=== PATIENT | female | born 1965 | race Two or more races ===

== ENCOUNTER 2016-11-19 07:57 | Emergency (ER) | payer OTHER ==
[2016-11-19 08:04] VITALS: TEMP 98.1; BMI 30.7
[2016-11-19] MEDS ORDERED: FAMOTIDINE 20 MG/50 ML IVPB 50 ML IVPB ONE ×2 (08:55→09:01)
[2016-11-19] MEDS ORDERED: SODIUM CHLORIDE 1,000 ML IV ONE (08:55)
--- NOTE | 2016-11-19 09:24 | PDOC ---
History of Present Illness - General History Source: Patient Exam Limitations: No Limitations - History of Present Illness Initial Comments: 11/19/16 09:11 The patient is a 51-year-old woman with a significant past medical history of lupus (newly diagnosed this year; on Methotrexate), recent skin biopsy showed amyloidosis, gastroesophageal reflux disease and neuropathy who presents to the emergency department for abdominal pain. Patient states that she has been experiencing sharp constant per-umbilical non-radiating abdominal pain past week. No trauma, fall strenuous activity. Patient states that she has had two endoscopies performed this year (most recent October 09; which was indicative for ulcers and nodules). She notes that her pain is exacerbated with positional movements such as sitting up. She reports compliance with her Zantac which does not alleviate her pain. She also reports a dull achy pain over her right lower quadrant. She states that she feels there is a mass present around the area. Patient reports concern as this morning she coughed what appeared to be red tinged mucous. No fever, chills, chest pain, shortness of breath, vomiting, diarrhea. No urinary complaints. Allergies: Codeine. Epinephrine. Iodinated Contrast Media Oral and IV. Tramadol. Past Surgical History: Cholecystectomy. Tubal ligation. Social History: Social EtOH use. No recreational drug use. Primary Care Physician: Dr. Msisy Dunbar [phone] <Ashley Gardner - Last Filed: 11/19/16 13:15> <Jaylan Polanco - Last Filed: 11/19/16 13:59> - General Chief Complaint: Pain Stated Complaint: STOMACH PAIN Time Seen by Provider: 11/19/16 08:17 Past History <Ashley Gardner - Last Filed: 11/19/16 13:15> - Past Medical History HTN: Yes Other medical history: lupus,neuropathy - Surgical History Cholecystectomy: Yes - Psycho/Social/Smoking Cessation Hx Anxiety: No Suicidal Ideation: No Smoking History: Never smoked Have you smoked in the past 12 months: No Information on smoking cessation initiated: No Hx Alcohol Use: No Drug/Substance Use Hx: No Substance Use Type: None <Jaylan Polanco - Last Filed: 11/19/16 13:59> - Past Medical History Allergies/Adverse Reactions: Allergies Allergy/AdvReac Type Severity Reaction Status Date / Time codeine Allergy Verified 11/19/16 07:59 epinephrine Allergy Verified 11/19/16 07:59 Iodinated Contrast Media - Allergy Verified 11/19/16 07:59 Oral and tramadol Allergy Verified 11/19/16 07:59 Home Medications: Ambulatory Orders Folic Acid 1 mg PO DAILY 11/19/16 Gabapentin 300 mg PO DAILY 11/19/16 Hydroxychloroquine Sulfate [Plaquenil] 200 mg PO DAILY 11/19/16 Methotrexate Sodium [Methotrexate] 0 mg SQ WEEKLY 11/19/16 Oxycodone HCl/Acetaminophen [Percocet 5-325 mg Tablet] 1 - 2 tab PO TID PRN #20 tab MDD 6 11/19/16 Ranitidine HCl [Zantac] 150 mg PO BID 11/19/16 Triamterene/Hydrochlorothiazid [Triamterene-Hctz 75-50 mg Tab] 1 each PO DAILY 11/19/16 Review of Systems - Review of Systems Constitutional: No: Chills, Fever Respiratory: No: Cough, Shortness of Breath Cardiac (ROS): No: Chest Pain ABD/GI: Yes: Nausea. No: Diarrhea, Vomiting : No: Dysuria, Frequency All Other Systems: Reviewed and Negative <Jaylan Polanco - Last Filed: 11/19/16 13:59> *Physical Exam - Vital Signs Last Vital Signs Temp Pulse Resp BP Pulse Ox 98.1 F 90 18 124/91 100 11/19/16 08:00 11/19/16 08:00 11/19/16 08:00 11/19/16 08:00 11/19/16 08:00 - Physical Exam Comments: 11/19/16 09:11 GENERAL: The patient is awake, alert, and fully oriented, in no acute distress. HEAD: Normal with no signs of trauma. EYES: Pupils equal, round and reactive to light, extraocular movements intact, sclera anicteric, conjunctiva clear with no pallor. ENT: Ears normal, nares patent, oropharynx clear without exudates. Moist mucous membranes. NECK: Normal range of motion, supple without lymphadenopathy, JVD, or masses. LUNGS: Breath sounds equal, clear to auscultation bilaterally. No wheeze/ crackles. HEART: Regular rate and rhythm, normal S1 and S2 without murmur or rub. ABDOMEN: Soft. There is some epigastric discomfort to palpation without guarding or rebound There is also pinpoint discomfort just left of the umbilicus. No visible bruising. There is some referred pain on the right side when palpating the left. Nondistended. BS wnl. No palpable masses. No hepatosplenomegaly. EXTREMITIES: Normal range of motion, no edema. No clubbing or cyanosis. No cords, erythema, or tenderness. NEUROLOGICAL: Cranial nerves II through XII grossly intact. Normal speech, normal gait. PSYCH: Normal mood, normal affect. SKIN: Warm, Dry, normal turgor, no rashes or lesions noted. <Ashley Gardner - Last Filed: 11/19/16 13:15> - Vital Signs Last Vital Signs Temp Pulse Resp BP Pulse Ox 98.1 F 90 18 124/91 100 11/19/16 08:00 11/19/16 08:00 11/19/16 08:00 11/19/16 08:00 11/19/16 08:00 <Jaylan Polanco - Last Filed: 11/19/16 13:59> Heart Score/ECG Review #1 ECG reviewed & interpreted by me at: 09:22 General ECG Interpretation: Sinus Rhythm, Normal Rate (75), Normal Intervals ( qtc 428), No acute ischemic changes <Jaylan Polanco - Last Filed: 11/19/16 13:59> ED Treatment Course - LABORATORY CBC & Chemistry Diagram: 11/19/16 09:40 11/19/16 09:40 - RADIOLOGY Radiograph Interpretation: 11/19/16 12:46 EXAM: CT/ABDOMEN PELVIS CT W/O CONTR Interpreted by Dr. Devang Barnes IMPRESSION: Coronal and sagittal reformatted images were obtained Included lower lung appears unremarkable. The heart is within normal limits in size. Postcholecystectomy surgical metallic clips are present. The stomach is a nondistended limiting evaluation of its wall. The liver, spleen, both adrenal glands and both kidneys appear unremarkable. The pancreas is within normal limits in size. There is mild stranding of the mesentery around the mesenteric artery and vein, in the mid abdomen as well as around the takeoff of the superior mesenteric artery and celiac artery which is nonspecific. Questionable few tiny mesenteric lymph nodes are present. There is no evidence of small bowel obstruction. There are a few tiny mesenteric lymph nodes in the right lower quadrant. The terminal ileum appears unremarkable. Appendix is not visualized. Normal stool burden in the colon without gross wall thickening. Perirectal and pericecal fat is clear. The uterus measures 9 x 6 cm with homogeneous attenuation. Partially distended urinary bladder limiting evaluation of its wall. Mild degenerative disc disease at L5-S1 level. 7 mm sclerotic density in the left ischium which is nonspecific Otherwise, the visualized osseous structures appear unremarkable. - Medications Given in the ED: ED Medications Discontinued Medications Generic Name Dose Route Start Last Admin Trade Name Freq PRN Reason Stop Dose Admin Famotidine/Sodium Chloride 50 mls @ 100 mls/hr 11/19/16 08:55 11/19/16 09:21 Pepcid 20 Mg Premixed Ivpb - IVPB 11/19/16 09:24 100 mls/hr ONCE ONE Administration <Ashley Gardner - Last Filed: 11/19/16 13:15> - LABORATORY CBC & Chemistry Diagram: 11/19/16 09:40 11/19/16 09:40 - RADIOLOGY Radiology Studies Ordered: Category Date Time Status ABDOMEN & PELVIS CT W/O CONTR [CT] Stat CT Scan 11/19/16 08:56 Ordered <Jaylan Polanco - Last Filed: 11/19/16 13:59> Medical Decision Making - Medical Decision Making 11/19/16 13:15 Call placed to patient's PMD, Dr. Missy Dunbar. Immediate response. Case was discussed. <Ashley Gardner - Last Filed: 11/19/16 13:15> - Medical Decision Making 11/19/16 09:11 A portion of this note was documented by scribe services under my direction. I have reviewed the details of the note, within reason, and agree with the documentation with the following case summary and management plan written by me. 51y/o F with history of lupus on methotrexate currently, amyloid, history of gastritis status post endoscopy on Zantac who presents with acute on chronic upper abdominal pain. Reports chronic upper abdominal burning, acutely worsened and with higher severity this morning, associated with some nausea. No vomiting or diarrhea, had normal bowel movement this morning. No fevers or chills. Presents for evaluation. Vitals as normal. Exam as noted with epigastric discomfort to palpation, but no guarding or rebound. 51-year-old female with likely exacerbation of her underlying gastritis, less likely pancreatitis, she is status post cholecystectomy, less likely obstruction or incarcerated hernia. She does have some localizing tenderness, but no peritoneal findings. Labs, urinalysis Antacid Given comorbidities and surgical history, will check CT of the abdomen and pelvis without IV contrast given ALLERGIES Reassess 11/19/16 12:13 Labs are within normal limits, no leukocytosis with white count 5.7 and relatively normal differential. Chemistries are within normal limits including LFTs and lipase. Urinalysis is clear. Patient's pain persists, particularly the left periumbilical discomfort, so given trial of morphine and prophylactic Zofran. Despite codeine ALLERGY, states has had morphine in the past without reaction. CT performed, awaiting rads read. 11/19/16 13:12 CTAP with adenitis, otherwise no organ pathology. Exam unchanged, morphine helped her back pain but not her abd pain. Trial of toradol. Will d/w Dr. griffin, can likely be discharged with continued outpt f/u. 11/19/16 13:53 feels better after toradol, abdomen improved. tolerating PO, friend at bedside. agrees with d/c plan, understands return criteria. <Jaylan Polanco - Last Filed: 11/19/16 13:59> *DC/Admit/Observation/Transfer - Attestations Scribe Attestion: 11/19/16 09:11 Documentation prepared by Ashley Gardner, acting as medical research scientist for Jaylan Polanco MD. <Ashley Gardner - Last Filed: 11/19/16 13:15> <Jaylan Polanco - Last Filed: 11/19/16 13:59> Diagnosis at time of Disposition: Mesenteric adenitis Abdominal pain Qualifiers: Abdominal location: epigastric Qualified Code(s): R10.13 - Epigastric pain - Discharge Dispostion Disposition: HOME Condition at time of disposition: Improved - Prescriptions Prescriptions: Oxycodone HCl/Acetaminophen [Percocet 5-325 mg Tablet] 1 - 2 tab PO TID PRN #20 tab MDD 6 PRN Reason: Pain - Referrals Referrals: Ketty Ribera MD [Primary Care Provider] - - Patient Instructions Printed Discharge Instructions: DI for Mesenteric Adenitis-Adult Additional Instructions: Activity as tolerated. Stay hydrated. Blood tests and a urinalysis showed no acute abnormalities. A CT of the abdomen/ pelvis showed adenitis (inflamed lymph nodes), which could be the cause of your pain. Take percocet as prescribed as needed. Percocet can make you light-headed , so take proper precautions. Continue your medications as previously prescribed by your physician. You should follow up with Dr. Leonard and your strategy consultant as soon as possible regarding today's emergency department visit. Return to the emergency department for any new or concerning symptoms, particularly persistent or worsening pain, bloody vomit or diarrhea, fever/ chills, dehydration.
[2016-11-19 10:07] LABS: BASOPHIL 0.7 % (0-2.0); EOSINOPHIL 1.3 % (0-4.5); MCH 26.6 pg (25.7-33.7); MCHC 33.2 g/dl (32.0-36.0); MEAN PLT VOLUME 9.2 fl (7.5-11.1); NEUTROPHILS 47.3 % (42.8-82.8); PLATELET COUNT 239 K/MM3 (134-434); RDW 16.9 % (11.6-15.6); WHITE BLOOD COUNT 5.7 K/mm3 (4.0-10.0)
[2016-11-19 10:24] LABS: ALBUMIN 3.5 g/dl (3.4-5.0); ALK PHOS 77 U/L (45-117); ANION GAP 10 (8-16); BILIRUBIN,TOTAL 0.3 mg/dL (0.2-1.0); CALCIUM 9.2 mg/dL (8.5-10.1); CO2 28 mmol/L (21-32); CREATININE 0.8 mg/dL (0.55-1.02); GLUCOSE,RANDOM 104 mg/dL (74-106); SGPT/ALT 25 U/L (12-78); TOT PROT 7.2 g/dl (6.4-8.2)
[2016-11-19 10:25] LABS: SGOT/AST 32 U/L (15-37)
[2016-11-19 11:16] LABS: URINE APPEARANCE CLEAR; URINE BILIRUBIN NEGATIVE (NEGATIVE); URINE BLOOD NEGATIVE (NEGATIVE); URINE COLOR STRAW; URINE GLUCOSE (UA) NEGATIVE (NEGATIVE); URINE KETONE NEGATIVE (NEGATIVE); URINE LEUK ESTERASE NEGATIVE (NEGATIVE); URINE NITRITE NEGATIVE (NEGATIVE); URINE PROTEIN NEGATIVE (NEGATIVE); URINE UROBILINOGEN NEGATIVE E.U./dl (0.2-1.0)
[2016-11-19] MEDS ORDERED: ONDANSETRON 4 MG/2 ML VIAL IVPUSH ONE (12:12)
[2016-11-19] MEDS ORDERED: morphine CARPU-JECT 4 MG/1 ML DISP.SYRIN IVPUSH ONE (12:12)
[2016-11-19] MEDS ORDERED: morphine CARPU-JECT 4 MG/1 ML DISP.SYRIN ONE (12:14)
[2016-11-19] MEDS ORDERED: ONDANSETRON 4 MG/2 ML VIAL ONE (12:15)
[2016-11-19] MEDS ORDERED: KETOROLAC TROMETHAMINE 30 MG/1 ML VIAL IVPUSH ONE (13:06)
[2016-11-19] MEDS ORDERED: KETOROLAC TROMETHAMINE 30 MG/1 ML VIAL ONE (13:09)
--- NOTE | 2016-11-19 13:14 | EKG ---
Test Reason : Blood Pressure : / mmHG Vent. Rate : 075 BPM Atrial Rate : 075 BPM P-R Int : 160 ms QRS Dur : 076 ms QT Int : 384 ms P-R-T Axes : 030 022 010 degrees QTc Int : 428 ms NORMAL SINUS RHYTHM NO PREVIOUS ECGS AVAILABLE CLINICAL CORELATION RECOMMENDED Confirmed by TEMI WEIR MD ([id number]) on 11/19/2016 1:14:15 PM Referred By: Confirmed By:TEMI WEIR MD
[2016-11-19 14:52] VITALS: BP 113/69; PULSE 72
== END 2016-11-19 14:52 | disposition home or self-care (01) ==
LOC: JER 07:57
PROC: 3E033GC Introduction of Other Therapeutic Substance into Peripheral Vein, Percutaneous Approach (ICD-10-PCS; principal; 2016-11-19)
PROC: 3E033NZ Introduction of Analgesics, Hypnotics, Sedatives into Peripheral Vein, Percutaneous Approach (ICD-10-PCS; 2016-11-19)
PROC: 3E033GC Introduction of Other Therapeutic Substance into Peripheral Vein, Percutaneous Approach (ICD-10-PCS; 2016-11-19)
PROC: 3E0333Z Introduction of Anti-inflammatory into Peripheral Vein, Percutaneous Approach (ICD-10-PCS; 2016-11-19)
DX: I88.0 Nonspecific mesenteric lymphadenitis (principal); E85.9 Amyloidosis, unspecified; M32.9 Systemic lupus erythematosus, unspecified; I10 Essential (primary) hypertension; G62.9 Polyneuropathy, unspecified
CPT/HCPCS: 36415; 74176-TC; 80053; 81003; 83690; 85025; 93005; 93010; 96365; 96375; 99282-25; Q9967

== ENCOUNTER 2017-06-08 17:00 | Inpatient (IN) | payer OTHER ==
[2017-06-08 17:18] VITALS: BMI 29.9
--- NOTE | 2017-06-08 18:42 | PDOC ---
History of Present Illness - General Chief Complaint: Respiratory Stated Complaint: FLU History Source: Patient Exam Limitations: No Limitations - History of Present Illness Initial Comments: 06/08/17 18:35 HPI: This 52 yr old female with c/o chest congestion, cough, fever chills and recent completion of tamiflu for flu + now here for follow up Chief Compliant:cough, congetion PMH: lupus, recent infusions of retuxamar FH: Pt has not recently traveled outside the country in the last 30 days. Pt has not been in contact with people who have traveled out of the country, in contact with people who have been ill with fever, n, v, d. SH: smoking use: NONE illicit drug use: NONE alcohol use: NONE PSH: none Home med use noted on JUL Allergies:noted on JUL Immunizations:did not receive the flu shot PCP: not on staff Past History - Past Medical History Allergies/Adverse Reactions: Allergies Allergy/AdvReac Type Severity Reaction Status Date / Time codeine Allergy Verified 06/08/17 17:19 epinephrine Allergy Verified 06/08/17 17:19 Iodinated Contrast- Oral and Allergy Verified 06/08/17 17:19 IV Dye [Iodinated Contrast Media - Oral and] tramadol Allergy Verified 06/08/17 17:19 Home Medications: Ambulatory Orders Gabapentin 300 mg PO DAILY 11/19/16 Hydroxychloroquine Sulfate [Plaquenil] 200 mg PO DAILY 11/19/16 Triamterene/Hydrochlorothiazid [Triamterene-Hctz 75-50 mg Tab] 1 each PO DAILY 11/19/16 COPD: No HTN: Yes Other medical history: lupus - Surgical History Cholecystectomy: Yes - Suicide/Smoking/Psychosocial Hx Smoking History: Never smoked Have you smoked in the past 12 months: No Hx Alcohol Use: No Drug/Substance Use Hx: No Substance Use Type: None Review of Systems - Review of Systems Able to Perform ROS?: Yes Comments:: 06/08/17 18:42 General statement: Gen. illness and feeling with cough and cold Hematology: neg history of bleeding/blood thinners Skin: Neg for lesions, rash, bruising. HEENT: Neg symptoms Respiratory: Positive shortness of breath, cough and congestion Cardiac: Neg chest pain GI: Neg pain, n/v : Neg problems on voiding MS: Neg for joint pain/stiffness, no edema Neuro: Neg for LOC, weakness, Endocrine: Neg for excess thirst/hunger, cold/heat intolerance, excess sweating Allergies: Neg for allergies Is the patient limited Pashto proficient: No *Physical Exam - Vital Signs Last Vital Signs Temp Pulse Resp BP Pulse Ox 98.2 F 101 H 20 129/52 98 06/08/17 17:15 06/08/17 17:15 06/08/17 17:15 06/08/17 17:15 06/08/17 17:15 - Physical Exam Comments: 06/08/17 18:43 General Appearance: This ill appearing 52-year-old female V/S: hemodynamically stable, afebrile Skin: WNL of pt's skin color, no signs of pallor, mottling, cyanosis Head:symmetrical Eyes: EOM's intact, PERRLA Ears: denies pain Nose: patent with congestion Throat: lips, teeth, gums, tongue, buccal mucos pink and moist Lungs: Chest symmetry equal. Cap refill <3 seconds. Lung sounds rhonchi, wheezing Cardiac: PMI at R 4MCL space, pos S1 and S2, regular rate. Abdomen: Soft, round, nontender : Not observed Muscularskeletal: Gait steady, ambulated in to ER, no edema +PMS Neuro: AAOx3, cognitively intact, speech clear and appropriate. ED Treatment Course - LABORATORY CBC & Chemistry Diagram: 06/08/17 19:30 06/08/17 19:30 - RADIOLOGY Radiology Studies Ordered: Category Date Time Status CHEST PA & LAT [RAD] Stat Radiology 06/08/17 18:35 Ordered Medical Decision Making - Medical Decision Making 06/08/17 18:43 Patient initially seen and examined here in fast track. She is with congestion, cough, wheezing and feels crackling in her chest over the last couple of nights. She was initially treated with Tamiflu last week and now is completed it. She is nervous because she has lupus and has not been to the counter roller due to a switching insurance. She is concerned because she already completed the Tamiflu and is not recovering and now having crackles concerning for pneumonia. Chest x-ray ordered 06/08/17 18:57 CXR prelim neg for infiltrate but pt with + cough, wheeze, rhonchi, A/P suspicious pneumonia -cultures obtain -labs -ua/cs -solumedrol -azithromycin x 1 -duoneb Observe. 06/08/17 19:49 Pt transferred to Main ER for observation *DC/Admit/Observation/Transfer Diagnosis at time of Disposition: Influenza - Discharge Dispostion Condition at time of disposition: Guarded - Referrals Referrals: Missy Dunbar MD [Primary Care Provider] - - Patient Instructions - Post Discharge Activity
[2017-06-08] MEDS ORDERED: AZITHROMYCIN 500 MG VIAL IVPB ONE (18:55)
[2017-06-08] MEDS ORDERED: methylPREDNISolone NA SUCC 125 MG/2 ML VIAL IVPB ONE (18:55)
[2017-06-08] MEDS ORDERED: SODIUM CHLORIDE 1,000 ML IV STA (18:55)
[2017-06-08] MEDS ORDERED: AZITHROMYCIN IVPB 500 MG in DEXTROSE 5%-WATER - 250 ML IVPB ONE (19:15)
[2017-06-08] MEDS ORDERED: AZITHROMYCIN IVPB 250 ML IVPB ONE (19:34)
[2017-06-08] MEDS ORDERED: methylPREDNISolone NA SUCC 125 MG/2 ML VIAL ONE ×2 (19:35→20:14)
[2017-06-08 19:37] LABS: HEMOGLOBIN 13.8 GM/dL (10.7-15.3); WHITE BLOOD COUNT 6.3 K/mm3 (4.0-10.0)
[2017-06-08 19:42] LABS: URINE APPEARANCE CLEAR; URINE BILIRUBIN NEGATIVE (NEGATIVE); URINE BLOOD NEGATIVE (NEGATIVE); URINE COLOR YELLOW; URINE GLUCOSE (UA) NEGATIVE (NEGATIVE); URINE KETONE NEGATIVE (NEGATIVE)
[2017-06-08 19:43] LABS: URINE LEUK ESTERASE NEGATIVE (NEGATIVE); URINE NITRITE NEGATIVE (NEGATIVE); URINE PROTEIN NEGATIVE (NEGATIVE)
[2017-06-08 19:46] LABS: EOS % 2.2 % (0-4.5); HEMATOCRIT 42.3 % (32.4-45.2); LYMPH % 42.1 % (8-40); MCH 25.2 pg (25.7-33.7); MCHC 32.6 g/dl (32.0-36.0); MEAN CELL VOLUME 77.2 fl (80-96); MEAN PLT VOLUME 9.5 fl (7.5-11.1); NEUT % 43.7 % (42.8-82.8); PLATELET COUNT 258 K/MM3 (134-434); RBC 5.47 M/mm3 (3.60-5.2); RDW 16.9 % (11.6-15.6)
--- NOTE | 2017-06-08 19:51 | PDOC ---
*Physical Exam - Vital Signs Last Vital Signs Temp Pulse Resp BP Pulse Ox 98.2 F 101 H 20 129/52 98 06/08/17 17:15 06/08/17 17:15 06/08/17 17:15 06/08/17 17:15 06/08/17 17:15 - Physical Exam General Appearance: Yes: Appropriately Dressed Respiratory/Chest: positive: Rhonchi, Wheezing (throughout) Cardiovascular: positive: Tachycardia Gastrointestinal/Abdominal: positive: Normal Bowel Sounds, Soft Extremity: positive: Normal Capillary Refill, Normal Inspection, Normal Range of Motion Integumentary: positive: Normal Color, Dry, Warm Neurologic: positive: Fully Oriented, Alert, Normal Mood/Affect ED Treatment Course - LABORATORY CBC & Chemistry Diagram: 06/08/17 19:30 06/08/17 19:30 - ADDITIONAL ORDERS Additional order review: Laboratory Results 06/08/17 19:20 Urine Color Yellow Urine Appearance Clear Urine pH 5.0 Ur Specific [place] 1.020 Urine Protein Negative Urine Glucose (UA) Negative Urine Ketones Negative Urine Blood Negative Urine Nitrite Negative Urine Bilirubin Negative Urine Urobilinogen 2.0 H Ur Leukocyte Esterase Negative 06/08/17 19:30 RBC 5.47 H MCV 77.2 L MCHC 32.6 RDW 16.9 H MPV 9.5 Neutrophils % 43.7 Lymphocytes % 42.1 H Monocytes % 11.0 H Eosinophils % 2.2 Basophils % 1.0 Progress Note - Progress Note Progress Note: A: bronchitis P: Medical Decision Making - Medical Decision Making 06/08/17 21:23 patient s/p Duoneb x2. wheezing throughout. patient s/p solumedrol IV, azithromycin NS bolus. will give additional duoneb x 2 06/08/17 21:25 Patient reports no improvement in respiratory status. wheezing noted throughou . will magnesium sulfate and reevalaute. 06/08/17 22:49 06/09/17 00:[address] Munoz covering Dr. Hoover. Patient to be admitted for further management of care. 06/09/17 00:39 *DC/Admit/Observation/Transfer Diagnosis at time of Disposition: Influenza Reactive airway disease with acute exacerbation Qualifiers: Asthma severity: mild Asthma persistence: persistent Qualified Code(s): J45.31 - Mild persistent asthma with (acute) exacerbation - Discharge Dispostion Condition at time of disposition: Guarded Admit: Yes - Referrals Referrals: Missy Dunbar MD [Primary Care Provider] - - Patient Instructions - Post Discharge Activity
[2017-06-08 20:00] LABS: ALBUMIN 3.7 g/dl (3.4-5.0); ALK PHOS 93 U/L (45-117); ANION GAP 8 (8-16); BILIRUBIN,TOTAL 0.3 mg/dL (0.2-1.0); BLOOD UREA NITROGEN 17 mg/dL (7-18); CALCIUM 8.4 mg/dL (8.5-10.1); CHLORIDE 103 mmol/L (98-107); CO2 28 mmol/L (21-32); CREATININE 0.8 mg/dL (0.55-1.02); GLUCOSE,RANDOM 119 mg/dL (74-106); POTASSIUM 3.2 mmol/L (3.5-5.1); SGOT/AST 42 U/L (15-37); SGPT/ALT 59 U/L (12-78); SODIUM 139 mmol/L (136-145); TOT PROT 7.8 g/dl (6.4-8.2)
[2017-06-08] MEDS ORDERED: ALBUTEROL SO4 2.5/IPRATROPIUM 0.5 INH SOL 3 ML VIAL.NEB. NEB ONE ×2 (20:14→22:00)
[2017-06-08] MEDS: ALBUTEROL SO4 2.5/IPRATROPIUM 0.5 INH SOL 3 ML VIAL.NEB. NEB SCH ×4 (20:25→22:59)
[2017-06-08] MEDS ORDERED: IBUPROFEN 600 MG TABLET (FP) PO ONE ×2 (20:27→20:28)
[2017-06-08] MEDS ORDERED: MAGNESIUM SULF 50% (8.12 MEQ/2 ML-1 GM VIAL) IVPB ONE (22:37)
[2017-06-08] MEDS ORDERED: SODIUM CHLORIDE 1,000 ML IV SCH (22:45)
[2017-06-08] MEDS ORDERED: MAGNESIUM SULF 50% (8.12 MEQ/2 ML-1 GM VIAL) ONE (23:11)
[2017-06-09] MEDS ORDERED: ACETAMINOPHEN 325 MG TABLET (FP) PO PRN (00:16)
[2017-06-09] MEDS ORDERED: ALBUTEROL SO4 0.083% IH SOL 2.5 MG/3 ML VIAL.NEB. NEB PRN (00:16)
[2017-06-09] MEDS ORDERED: methylPREDNISolone NA SUCC 125 MG/2 ML VIAL IVPB SCH ×2 (00:30→10:00)
[2017-06-09] MEDS ORDERED: GABAPENTIN 300 MG CAPSULE (FP) PO ONE ×3 (00:43→01:00)
[2017-06-09] MEDS ORDERED: methylPREDNISolone NA SUCC 40 MG/1 ML VIAL ONE (00:56)
[2017-06-09] MEDS ORDERED: PATIENT'S OWN MEDICATION (NON-FORMULARY) (Triamterene/Hydrochlorothiazid [Triamterene-Hctz PO ONE (01:00)
[2017-06-09] MEDS ORDERED: TRIAMTERENE AND HCTZ - 37.5 MG/25 MG CAPSULE PO ONE (01:00)
[2017-06-09] MEDS ORDERED: HYDROXYCHLOROQUINE SO4 200 MG TABLET (FP) PO ONE (01:00)
[2017-06-09] MEDS ORDERED: HYDROXYCHLOROQUINE SO4 200 MG TABLET (FP) PO SCH ×2 (01:15→10:00)
[2017-06-09 08:45] VITALS: BP 145/90; PULSE 78; TEMP 98
--- NOTE | 2017-06-09 08:53 | DS ---
Physical Examination Vital Signs: Vital Signs Temperature 98 F 06/09/17 07:25 Pulse Rate 78 06/09/17 07:25 Respiratory Rate 16 06/09/17 07:25 Blood Pressure 145/90 06/09/17 07:25 O2 Sat by Pulse Oximetry (%) 98 06/09/17 07:25 Constitutional: Yes: Calm Eyes: Yes: EOM Intact HENT: Yes: Normocephalic Neck: Yes: Trachea Midline Cardiovascular: Yes: Regular Rate and Rhythm Respiratory: Yes: Wheezes (scattered bilateral) Gastrointestinal: Yes: Normal Bowel Sounds, Soft Musculoskeletal: Yes: WNL Extremities: Yes: WNL Edema: No Peripheral Pulses WNL: Yes Integumentary: Yes: WNL Neurological: Yes: WNL Psychiatric: Yes: WNL Labs: CBC, BMP 06/08/17 19:30 06/08/17 19:30 Discharge Summary Reason For Visit: INFLUENZA REACTIVE AIRWAY DISEASE W/EXAC Current Active Problems Influenza (Acute) Reactive airway disease with acute exacerbation (Acute) Hospital Course: was in office with flu like symptoms 1 week prior, finished tamiflu. 3 days ago developed more wheezing and coughing with associated diarrhea. On plaquenil for lupus. no chills, no fever at this point, no abdominal pain. cough is mostly dry without sputum production. received iv steroids and iv abx in er, feels much better now, anxious to go home. medically stable to go home with close out pt f/up. Condition: Guarded - Instructions Referrals: Missy Dunbar MD [Primary Care Provider] - Disposition: HOME - Home Medications Comprehensive Discharge Medication List: Ambulatory Orders Gabapentin 300 mg PO DAILY 11/19/16 Hydroxychloroquine Sulfate [Plaquenil] 200 mg PO DAILY 11/19/16 Triamterene/Hydrochlorothiazid [Triamterene-Hctz 75-50 mg Tab] 1 each PO DAILY 11/19/16 Albuterol 0.083% Nebulizer Yvonne [Ventolin 0.083% Nebulizer Soln -] 1 amp NEB Q6H PRN #30 amp 06/09/17 Azithromycin [Zithromax -] 250 mg PO UTDICT #6 tab 06/09/17 Prednisone [Deltasone -] 10 mg PO DAILY #30 tablet 06/09/17
[2017-06-09] MEDS ORDERED: LEVOFLOXACIN 500 MG IVPB 500 MG/100 ML BAG IVPB SCH (10:00)
[2017-06-09] MEDS ORDERED: PATIENT'S OWN MEDICATION (NON-FORMULARY) (Triamterene/Hydrochlorothiazid [Triamterene-Hctz PO SCH (10:00)
[2017-06-09] MEDS ORDERED: GABAPENTIN 300 MG CAPSULE (FP) PO SCH (10:00)
[2017-06-09] MEDS ORDERED: ENOXAPARIN NA (PORCINE) 40 MG/0.4 ML DISP.SYRIN SQ SCH (10:00)
== END 2017-06-09 08:49 | disposition home or self-care (01) | DRG 113 ==
LOC: JERFT 17:00 → JERBED 06-09 00:29 → UNDOADMIN 06-09 01:20 → JERBED 06-09 01:20
PROVIDERS: ADMIT Internal Medicine; ATTEND Internal Medicine
DX: J11.1 Influenza due to unidentified influenza virus with other respiratory manifestations (principal); J45.31 Mild persistent asthma with (acute) exacerbation; J40 Bronchitis, not specified as acute or chronic
CPT/HCPCS: 36415; 71046-TC; 80053; 81003; 85025; 87040; 87086; 99283-25

== ENCOUNTER 2017-12-19 14:20 | Observation (INO) | payer OTHER ==
--- NOTE | 2017-12-19 14:51 | PDOC ---
History of Present Illness - History of Present Illness Initial Comments: 12/19/17 16:05 The patient is a 52 year old female, with a significant PMH of lupus (diagnosed 1 year ago, last flare up in October 2017), HTN, GERD, who presents to the emergency department with 5 days of diffuse abdominal pain and 1 day of progressively worsening nausea with emesis (non bloody, non bilious). The patient states the diffuse abdominal pain is a sharp constant pain, radiates from the RUQ to LUQ/LLQ, rated 8/10 in intensity, exacerbated with oral intake , no alleviating factors. The patient states she was seen 2 days ago at [facility] for the same complaint of diffuse abdominal pain, prescribed Medrol for her lupus and discharged. The patient states she had a CT at that time but is unsure of the results. The patient reports that beginning last night around 1 am she had persistent emesis (non bloody, non bilious) from 1 am to 4 am which brought her to the ED today. The patient states her diffuse abdominal pain has been the same and not worsening. The patient states in the past few months she has experienced bruising on her LLE, a pruritic rash on her back, constipation (last bowel movement yesterday) and hair loss. The patient also endorses shortness of breath with exertion. The patient states she follows with Dr Gaspar for her lupus management. The patient denies chest pain, headache and dizziness. Denies fever, chills, diarrhea. Denies dysuria, frequency, urgency and hematuria. Allergies: Codeine. Epinephrine. Iodinated Contrast Media Oral and IV. Tramadol. Past surgical history: Cholecystectomy. Tubal ligation. Tonsillectomy. TMJ surgery. Social history: Social EtOH use. No recreational drug use. Rheumatology: Dr Gaspar [phone] PCP: Dr. Xavier <Franky Lua - Last Filed: 12/19/17 17:55> - General History Source: Patient Exam Limitations: No Limitations <Mary Nguyen - Last Filed: 12/19/17 18:26> - General Chief Complaint: Nausea/Vomiting Stated Complaint: ABDOMINAL PAIN WITH N/V Time Seen by Provider: 12/19/17 14:43 Past History <Franky Lua - Last Filed: 12/19/17 17:55> - Past Medical History COPD: No HTN: Yes - Surgical History Cholecystectomy: Yes - Suicide/Smoking/Psychosocial Hx Smoking History: Never smoked Have you smoked in the past 12 months: No Hx Alcohol Use: No Drug/Substance Use Hx: No Substance Use Type: None <Mary Nguyen - Last Filed: 12/19/17 18:26> - Past Medical History Allergies/Adverse Reactions: Allergies Allergy/AdvReac Type Severity Reaction Status Date / Time codeine Allergy Verified 12/19/17 14:44 epinephrine Allergy Verified 12/19/17 14:44 Iodinated Contrast- Oral and Allergy Verified 12/19/17 14:44 IV Dye [Iodinated Contrast Media - Oral and] tramadol Allergy Verified 12/19/17 14:44 Home Medications: Ambulatory Orders Hydroxychloroquine Sulfate [Plaquenil] 400 mg PO HS 11/19/16 Triamterene/Hydrochlorothiazid [Triamterene-Hctz 75-50 mg Tab] 1 each PO HS 03/28 Review of Systems - Review of Systems Comments:: 12/19/17 16:06 GENERAL/CONSTITUTIONAL: +Hair loss. No fever or chills. No weakness. HEAD, EYES, EARS, NOSE AND THROAT: No change in vision. No ear pain or discharge. No sore throat. CARDIOVASCULAR: +Shortness of breath. No chest pain. RESPIRATORY: No cough, wheezing, or hemoptysis. GASTROINTESTINAL: +Diffuse abdominal pain. +Nausea. +Vomiting. +Constipation. No diarrhea. GENITOURINARY: No dysuria, frequency, or change in urination. MUSCULOSKELETAL: No joint or muscle swelling or pain. No neck or back pain. SKIN: +Pruritic rash on back (resolved). NEUROLOGIC: No headache, vertigo, loss of consciousness, or change in strength/ sensation. ENDOCRINE: No increased thirst. No abnormal weight change. HEMATOLOGIC/LYMPHATIC: +Bruising on LLE. No anemia, easy bleeding, or history of blood clots. ALLERGIC/IMMUNOLOGIC: No hives or skin allergy. <Franky Lau - Last Filed: 12/19/17 17:55> *Physical Exam - Vital Signs Last Vital Signs Temp Pulse Resp BP Pulse Ox 98.8 F 90 16 150/86 100 12/19/17 14:43 12/19/17 14:43 12/19/17 14:43 12/19/17 14:43 12/19/17 14:43 - Physical Exam Comments: 12/19/17 16:42 GENERAL: The patient is in no acute distress. HEAD: Normal with no signs of trauma. EYES: PERRLA, EOMI, sclera anicteric, conjunctiva clear. ENT: Ears normal, nares patent, oropharynx clear without exudates. Moist mucous membranes. NECK: Normal range of motion, supple without lymphadenopathy, JVD, or masses. LUNGS: Breath sounds equal, clear to auscultation bilaterally. No wheezes, and no crackles. HEART:Regular rate and rhythm, normal S1 and S2 without murmur, rub or gallop. ABDOMEN: +Epigastric and LUQ tender to palpation. Soft, normoactive bowel sounds. No guarding, no rebound. No masses palpable. EXTREMITIES: Normal range of motion, no edema. No clubbing or cyanosis. No erythema, or tenderness. NEUROLOGICAL: Cranial nerves II through XII grossly intact. Normal speech. No focal neurological deficits. MUSCULOSKELETAL: Back non-tender to palpation, no CVA tenderness SKIN: Warm, Dry, normal turgor, no rashes or lesions noted. <Franky Lua - Last Filed: 12/19/17 17:55> ED Treatment Course - LABORATORY CBC & Chemistry Diagram: 12/19/17 15:30 12/19/17 15:30 - ADDITIONAL ORDERS Additional order review: Laboratory Results 12/19/17 12/19/17 15:30 15:01 Sodium 136 Potassium 3.2 L Chloride 103 Carbon Dioxide 27 Anion Gap 6 L BUN 12 Creatinine 0.7 Creat Clearance w eGFR > 60 Random Glucose 111 H Calcium 8.6 Total Bilirubin 0.5 AST 22 ALT 15 Alkaline Phosphatase 51 Total Protein 6.4 Albumin 3.6 Total Amylase 78 Urine Color Yellow Urine Appearance Clear Urine pH 6.0 Ur Specific [place] 1.015 Urine Protein Negative Urine Glucose (UA) Negative Urine Ketones Negative Urine Blood Negative Urine Nitrite Negative Urine Bilirubin Negative Urine Urobilinogen 0.2 Ur Leukocyte Esterase Negative 12/19/17 15:30 RBC 4.61 MCV 77.8 L MCHC 32.1 RDW 17.4 H MPV 10.3 Neutrophils % 54.6 Lymphocytes % 30.9 Monocytes % 11.0 H Eosinophils % 0.8 Basophils % 2.7 H - RADIOLOGY Radiograph Interpretation: 12/19/17 17:55 EXAM#: TYPE/EXAM: RESULT: [id number] CT/ABDOMEN PELVIS CT W/O CONTR HISTORY PROVIDED: Abdominal pain TECHNIQUE: Sequential axial images were obtained from the domes of the diaphragm through the symphysis pubis viewed The study is limited without the use of any contrast material. The lung bases are clear. The liver, spleen, pancreas, adrenal glands and kidneys demonstrate no significant abnormalities. The gallbladder is been removed. There is no evidence of intra-abdominal or retroperitoneal lymphadenopathy or fluid collections. There is mild mesenteric haziness within the left mid abdomen. This finding had been noted on a prior study dated 11/19/2016 with no significant change. A few small is mesenteric lymph nodes are also identified. There is no evidence of pneumoperitoneum, bowel obstruction or intra-abdominal abscess. There is no CT evidence of acute appendicitis or diverticulitis. Examination of the pelvis demonstrates no evidence of pelvic masses, fluid collections or lymphadenopathy. The uterus is somewhat enlarged and leiomyomata are suspected. A 2.4 cm right ovarian cyst is also noted. There is no evidence of acute bony pathology. IMPRESSION: No evidence of acute pathology within the abdomen or pelvis. Please see above discussion. Reported By: Urban Maddox MD <Franky Lua - Last Filed: 12/19/17 17:55> - LABORATORY CBC & Chemistry Diagram: 12/19/17 15:30 12/19/17 15:30 <Mary Nguyen - Last Filed: 12/19/17 18:26> Medical Decision Making - Medical Decision Making 12/19/17 16:[address] Gaspar at 3:47. Pending return phone call. Second call placed to Dr. Gaspar at 4:36. Call returned at 5:[address] Gaspar. Case discussed. 12/19/17 17:[address] Xavier at 5:05 pm[address] Call service advised Dr. Stoner to return the call. Call returned by Dr Stoner at 5:45 pm. Case discussed. <Franky Lua - Last Filed: 12/19/17 17:55> - Medical Decision Making 12/19/17 17:15 Laboratory Tests 12/19/17 12/19/17 15:30 15:30 WBC 7.1 Hgb 11.5 Hct 35.9 Plt Count 272 Absolute Neuts (auto) 3.8 Neutrophils % 54.6 Lymphocytes % 30.9 Monocytes % 11.0 H Basophils % 2.7 H Sodium 136 Potassium 3.2 L Chloride 103 Carbon Dioxide 27 BUN 12 Creatinine 0.7 Random Glucose 111 H AST 22 ALT 15 Total Amylase 78 12/19/17 17:[address] Gina Joya states that patient had likely Agrees with admission 12/19/17 17:17 ? Serositis ? vasculitis 12/19/17 17:[address] Benito Manrique states he does not come to [facility] Recommends admission to Service attending <Mary Nguyen - Last Filed: 12/19/17 18:26> *DC/Admit/Observation/Transfer - Attestations Scribe Attestion: 12/19/17 16:07 Documentation prepared by Franky Lua, acting as biomedical engineering director for Mary Nguyen MD. <Franky Lua - Last Filed: 12/19/17 17:55> - Discharge Dispostion Decision to Admit order: Yes <Mary Nguyen - Last Filed: 12/19/17 18:26> Diagnosis at time of Disposition: Intractable vomiting Qualifiers: Vomiting type: unspecified Nausea presence: with nausea Qualified Code(s): R11.2 - Nausea with vomiting, unspecified - Discharge Dispostion Condition at time of disposition: Stable - Referrals Referrals: Missy Dunbar MD [Primary Care Provider] - - Patient Instructions - Post Discharge Activity
[2017-12-19 15:06] LABS: URINE APPEARANCE Clear; URINE BILIRUBIN Negative (NEGATIVE); URINE COLOR Yellow; URINE GLUCOSE (UA) Negative (NEGATIVE); URINE KETONE Negative (NEGATIVE); URINE LEUK ESTERASE Negative (NEGATIVE); URINE NITRITE Negative (NEGATIVE); URINE PROTEIN Negative (NEGATIVE); URINE UROBILINOGEN 0.2 (0.2-1.0)
[2017-12-19] MEDS ORDERED: SODIUM CHLORIDE 1,000 ML IV STA (15:14)
[2017-12-19] MEDS ORDERED: FAMOTIDINE 20 MG/50 ML IVPB 20 MG/50 ML MG IVPB ONE ×2 (15:19→16:12)
[2017-12-19] MEDS ORDERED: ONDANSETRON 4 MG/2 ML VIAL IVPB ONE (15:19)
[2017-12-19] MEDS ORDERED: ACETAMINOPHEN 1000 MG/100 ML VIAL (NON FORMULARY) IVPB ONE (15:21)
[2017-12-19 15:45] LABS: BASO % 2.7 % (0-2.0); EOS % 0.8 % (0-4.5); HEMATOCRIT 35.9 % (32.4-45.2); HEMOGLOBIN 11.5 GM/dl (10.7-15.3); LYMPH % 30.9 % (8-40); MCH 24.9 pg (25.7-33.7); MCHC 32.1 g/dl (32.0-36.0); MEAN CELL VOLUME 77.8 fl (80-96); MEAN PLT VOLUME 10.3 fl (7.5-11.1); NEUT % 54.6 % (42.8-82.8); PLATELET COUNT 272 K/MM3 (134-434); RBC 4.61 M/mm3 (3.60-5.2); RDW 17.4 % (11.6-15.6); WHITE BLOOD COUNT 7.1 K/mm3 (4.0-10.8)
[2017-12-19 15:53] LABS: ALBUMIN 3.6 g/dl (3.5-5.0); ALK PHOS 51 U/L (32-92); AMYLASE 78 U/L (25-125); ANION GAP 6 (8-16); BILIRUBIN,TOTAL 0.5 mg/dl (0.2-1.0); BLOOD UREA NITROGEN 12 mg/dl (7-18); CALCIUM 8.6 mg/dl (8.4-10.2); CHLORIDE 103 mmol/L (98-107); CO2 27 mmol/L (22-28); CREATININE 0.7 mg/dl (0.6-1.3); GLUCOSE,RANDOM 111 mg/dl (74-106); POTASSIUM 3.2 mmol/L (3.5-5.1); SGOT/AST 22 U/L (10-42); SGPT/ALT 15 U/L (10-40); SODIUM 136 mmol/L (136-145); TOT PROT 6.4 g/dl (6.4-8.3)
[2017-12-19] MEDS ORDERED: ACETAMINOPHEN INJECTION 100 ML IVPB ONE (16:11)
[2017-12-19] MEDS ORDERED: morphine CARPU-JECT 4 MG/1 ML DISP.SYRIN IVPUSH ONE (17:05)
[2017-12-19] MEDS ORDERED: methylPREDNISolone NA SUCC 125 MG/2 ML VIAL IVPB ONE (17:05)
[2017-12-19 17:14] LABS: LIPASE 284 U/L (73-393)
[2017-12-19] MEDS ORDERED: methylPREDNISolone NA SUCC 125 MG/2 ML VIAL ONE (17:29)
[2017-12-19] MEDS ORDERED: morphine SULFATE 4 MG/ML VIAL ONE (17:30)
[2017-12-19] MEDS ORDERED: POTASSIUM CHLORIDE TABS 20 MEQ TABLET.ER (FP) PO ONE ×2 (18:28→18:30)
[2017-12-19] MEDS ORDERED: MORPHINE SULFATE 2 MG/ML VIAL IVPUSH PRN ×2 (20:52→23:19)
[2017-12-19] MEDS ORDERED: ONDANSETRON 4 MG/2 ML VIAL IVPUSH PRN (20:52)
[2017-12-19] MEDS ORDERED: LACTATED RINGERS SOLUTION 1,000 ML IV SCH (21:00)
--- NOTE | 2017-12-19 21:02 | HP ---
CHIEF COMPLAINT: nausea, vomiting PCP: Dr. Leonard HISTORY OF PRESENT ILLNESS: 52yo woman with SLE, HTN, and c/o of right sided abdominal pain for one week and nausea and vomiting for 1 day. Said she vomited multiple times, nonbloody, nonbilious. Denied any diarrhea. She has been eating tacos which is no unusual for her. Denied fever or chills. Rheumatology: Dr Gaspar [phone] ER course was notable for: (1) IV fluid hydration (2) solumedrol (3) morphine Recent Travel: [place] in october PAST MEDICAL HISTORY: SLE, htn PAST SURGICAL HISTORY: Cholecystectomy. Tubal ligation. Tonsillectomy. TMJ surgery. Social History: Smoking: socially Alcohol: no Drugs: no Family History: mother with "kidney disease" Allergies codeine Allergy (Verified 12/19/17 14:44) epinephrine Allergy (Verified 12/19/17 14:44) Iodinated Contrast- Oral and IV Dye [Iodinated Contrast Media - Oral and] Allergy (Verified 12/19/17 14:44) tramadol Allergy (Verified 12/19/17 14:44) HOME MEDICATIONS: Home Medications Medication Instructions Recorded Hydroxychloroquine Sulfate 400 mg PO HS 11/19/16 [Plaquenil] Triamterene/Hydrochlorothiazid 1 each PO HS 11/19/16 [Triamterene-Hctz 75-50 mg Tab] REVIEW OF SYSTEMS CONSTITUTIONAL: Absent: fever, chills, diaphoresis, generalized weakness, malaise, loss of appetite, weight change HEENT: Absent: rhinorrhea, nasal congestion, throat pain, throat swelling, difficulty swallowing, mouth swelling, ear pain, eye pain, visual changes CARDIOVASCULAR: Absent: chest pain, syncope, palpitations, irregular heart rate, lightheadedness , peripheral edema RESPIRATORY: Absent: cough, shortness of breath, dyspnea with exertion, orthopnea, wheezing, stridor, hemoptysis GASTROINTESTINAL: Present- abdominal pain, nausea, vomiting, Absent: abdominal distension, diarrhea, constipation, melena, hematochezia GENITOURINARY: Absent: dysuria, frequency, urgency, hesitancy, hematuria, flank pain, genital pain MUSCULOSKELETAL: Present : neck pain, myalgia, Absent: arthralgia, joint swelling, back pain, SKIN: Absent: rash, itching, pallor HEMATOLOGIC/IMMUNOLOGIC: Absent: easy bleeding, easy bruising, lymphadenopathy, frequent infections ENDOCRINE: Absent: unexplained weight gain, unexplained weight loss, heat intolerance, cold intolerance NEUROLOGIC: Absent: headache, focal weakness or paresthesias, dizziness, unsteady gait, seizure, mental status changes, bladder or bowel incontinence PSYCHIATRIC: Present : anxiety, Absent: depression, suicidal or homicidal ideation, hallucinations. PHYSICAL EXAMINATION Vital Signs - 24 hr 12/19/17 14:43 Temperature 98.8 F Pulse Rate 90 Respiratory 16 Rate Blood Pressure 150/86 O2 Sat by Pulse 100 Oximetry (%) GENERAL: Awake, alert, and fully oriented, in no acute distress. HEAD: Normal with no signs of trauma. EYES: Pupils equal, round and reactive to light EARS, NOSE, THROAT: Ears normal, nares patent, oropharynx clear without exudates. Moist mucous membranes. NECK: Normal range of motion, supple without lymphadenopathy, JVD, or masses. LUNGS: Breath sounds equal, clear to auscultation bilaterally. No wheezes, and no crackles. No accessory muscle use. HEART: Regular rate and rhythm, normal S1 and S2 without murmur, rub or gallop. ABDOMEN: Soft, Mild lower abdominal tenderness, not distended, normoactive bowel sounds, no guarding, no rebound, no masses. No hepatomegaly or splenomegaly. MUSCULOSKELETAL: Normal range of motion at all joints. No bony deformities or tenderness. No CVA tenderness. UPPER EXTREMITIES: 2+ pulses, warm, well-perfused. No cyanosis. No clubbing. No peripheral edema. LOWER EXTREMITIES: 2+ pulses, warm, well-perfused. No calf tenderness. No peripheral edema. PSYCHIATRIC: Cooperative. Good eye contact. Appropriate mood and affect. SKIN: Warm, dry, normal turgor, no rashes or lesions noted, normal capillary refill. Laboratory Results - last 24 hr 12/19/17 12/19/17 12/19/17 15:01 15:30 15:30 WBC 7.1 RBC 4.61 Hgb 11.5 Hct 35.9 MCV 77.8 L MCH 24.9 L MCHC 32.1 RDW 17.4 H Plt Count 272 MPV 10.3 Absolute Neuts (auto) 3.8 Neutrophils % 54.6 Lymphocytes % 30.9 Monocytes % 11.0 H Eosinophils % 0.8 Basophils % 2.7 H Sodium 136 Potassium 3.2 L Chloride 103 Carbon Dioxide 27 Anion Gap 6 L BUN 12 Creatinine 0.7 Creat Clearance w eGFR > 60 Random Glucose 111 H Lactic Acid Calcium 8.6 Total Bilirubin 0.5 AST 22 ALT 15 Alkaline Phosphatase 51 Total Protein 6.4 Albumin 3.6 Total Amylase 78 Lipase 284 Urine Color Yellow Urine Appearance Clear Urine pH 6.0 Ur Specific [place] 1.015 Urine Protein Negative Urine Glucose (UA) Negative Urine Ketones Negative Urine Blood Negative Urine Nitrite Negative Urine Bilirubin Negative Urine Urobilinogen 0.2 Ur Leukocyte Esterase Negative 12/19/17 15:30 WBC RBC Hgb Hct MCV MCH MCHC RDW Plt Count MPV Absolute Neuts (auto) Neutrophils % Lymphocytes % Monocytes % Eosinophils % Basophils % Sodium Potassium Chloride Carbon Dioxide Anion Gap BUN Creatinine Creat Clearance w eGFR Random Glucose Lactic Acid 1.4 Calcium Total Bilirubin AST ALT Alkaline Phosphatase Total Protein Albumin Total Amylase Lipase Urine Color Urine Appearance Urine pH Ur Specific [place] Urine Protein Urine Glucose (UA) Urine Ketones Urine Blood Urine Nitrite Urine Bilirubin Urine Urobilinogen Ur Leukocyte Esterase CT of abdomen and pelvis reviewed , 2.4 cm right ovarian cyst ASSESSMENT/PLAN: 52yo woman with SLE, HTN, c/o nausea, vomiting, likely gastroenteritis. Doubt SLE flair at this time as physical exam is quite normal. +right ovarian cyst. #Gastroentritis -observation -IV fluid hydration -morphine 2mg IV prn for pain -zofran IV prn for nausea, vomiting -clear liqud diet for now #SLE -controlled -plaquenil 200mg PO bid for SLE -ESR -CRP #HTN -controlled -HCTZ 25mg po daily #Ovarian cyst -informed patient, doubt it is causing her abdominal pain -transvaginal U/S -obgyn as outpatient heparin sc for dvt ppx Visit type - Emergency Visit Emergency Visit: Yes ED Registration Date: 12/19/17 Care time: The patient presented to the Emergency Department on the above date and was hospitalized for further evaluation of their emergent condition. - New Patient This patient is new to me today: Yes Date on this admission: 12/19/17 - Critical Care Critical Care patient: No Hospitalist Screening - Colonoscopy Questionnaire Colonoscopy Questionnaire: Colonoscopy Questionnaire - Patient: 50 - 75 years old and never had a screening colonoscopy: Unknown History of colon or rectal polyps, or CA: Unknown History of IBD, Crohn's disease or UC: Unknown History of abdominal radiation therapy as a child: Unknown - Relative: 1 with colon or rectal CA, or polyps at age 60 or younger: Unknown Colon or rectal CA diagnosed at age 45 or younger: Unknown Multiple relatives with colon or rectal CA: Unknown - Outcome: Screening Result: Negative Screen
[2017-12-19] MEDS: HEPARIN NA (PORCINE) 5,000 UNITS/ML 1ML VIAL SQ SCH (21:41)
[2017-12-19] MEDS: HYDROXYCHLOROQUINE SO4 200 MG TABLET (FP) PO SCH (21:41)
[2017-12-19] MEDS ORDERED: HYDROCHLOROTHIAZIDE 25 MG TABLET (FP) PO ONE (21:45)
[2017-12-19] MEDS: morphine CARPU-JECT 2 MG/1 ML DISP.SYRIN IVPUSH PRN (23:25)
[2017-12-19] MEDS ORDERED: diphenhydrAMINE HCL 25 MG CAPSULE (FP) PO ONE (23:45)
[2017-12-20] MEDS: ZOLPIDEM TARTRATE 5 MG TABLET PO PRN (00:43)
--- NOTE | 2017-12-20 08:30 | PN ---
Physical Exam: SUBJECTIVE: Patient seen and examined at the bedside. Feels better, no distress. Denies chest pain or shortness of breath. No vomiting, nausea or abdominal pain. OBJECTIVE: advance diet, monitor intake discharge planning once able to tolerate PO Vital Signs Period Temp Pulse Resp BP Sys/Khalil Pulse Ox Last 24 Hr 97.7 F-98.8 F 83-90 16-20 120-150/69-86 98-100 GENERAL: The patient is awake, alert, and fully oriented, in no acute distress. HEAD: Normal with no signs of trauma. EYES: PERRL, extraocular movements intact, sclera anicteric, conjunctiva clear. No ptosis. ENT: Ears normal, nares patent, oropharynx clear without exudates, moist mucous membranes. NECK: Trachea midline, full range of motion, supple. LUNGS: Breath sounds equal, clear to auscultation bilaterally HEART: Regular rate and rhythm, ABDOMEN: Soft, nontender, nondistended, normoactive bowel sounds, no guarding, no rebound, no hepatosplenomegaly, no masses. EXTREMITIES: no edema. NEUROLOGICAL: Normal speech, gait not observed. PSYCH: Normal mood, normal affect. SKIN: Warm, dry, normal turgor, no rashes or lesions noted Laboratory Results - last 24 hr 12/19/17 12/19/17 12/19/17 15:01 15:30 15:30 WBC 7.1 RBC 4.61 Hgb 11.5 Hct 35.9 MCV 77.8 L MCH 24.9 L MCHC 32.1 RDW 17.4 H Plt Count 272 MPV 10.3 Absolute Neuts (auto) 3.8 Neutrophils % 54.6 Lymphocytes % 30.9 Monocytes % 11.0 H Eosinophils % 0.8 Basophils % 2.7 H Sodium 136 Potassium 3.2 L Chloride 103 Carbon Dioxide 27 Anion Gap 6 L BUN 12 Creatinine 0.7 Creat Clearance w eGFR > 60 Random Glucose 111 H Lactic Acid Calcium 8.6 Total Bilirubin 0.5 AST 22 ALT 15 Alkaline Phosphatase 51 Total Protein 6.4 Albumin 3.6 Total Amylase 78 Lipase 284 Urine Color Yellow Urine Appearance Clear Urine pH 6.0 Ur Specific [place] 1.015 Urine Protein Negative Urine Glucose (UA) Negative Urine Ketones Negative Urine Blood Negative Urine Nitrite Negative Urine Bilirubin Negative Urine Urobilinogen 0.2 Ur Leukocyte Esterase Negative 12/19/17 15:30 WBC RBC Hgb Hct MCV MCH MCHC RDW Plt Count MPV Absolute Neuts (auto) Neutrophils % Lymphocytes % Monocytes % Eosinophils % Basophils % Sodium Potassium Chloride Carbon Dioxide Anion Gap BUN Creatinine Creat Clearance w eGFR Random Glucose Lactic Acid 1.4 Calcium Total Bilirubin AST ALT Alkaline Phosphatase Total Protein Albumin Total Amylase Lipase Urine Color Urine Appearance Urine pH Ur Specific [place] Urine Protein Urine Glucose (UA) Urine Ketones Urine Blood Urine Nitrite Urine Bilirubin Urine Urobilinogen Ur Leukocyte Esterase Active Medications Generic Name Dose Route Start Last Admin Trade Name Freq PRN Reason Stop Dose Admin Heparin Sodium (Porcine) 5,000 unit 12/19/17 22:00 12/19/17 21:41 Heparin - SQ 5,000 unit BID FRANCIS Administration Hydrochlorothiazide 25 mg 12/20/17 10:00 Hctz - PO DAILY FRANCIS Hydroxychloroquine Sulfate 200 mg 12/19/17 22:00 12/19/17 21:41 Plaquenil - PO 200 mg BID FRANCIS Administration Lactated Ringer's 1,000 mls @ 75 mls/hr 12/19/17 21:00 12/19/17 21:41 Lactated Ringers Solution IV 75 mls/hr ASDIR FRANCIS Administration Morphine Sulfate 2 mg 12/19/17 23:20 12/19/17 23:25 Morphine Injection - IVPUSH 2 mg Q4H PRN Administration PAIN LEVEL 1-5 Ondansetron HCl 4 mg 12/19/17 20:52 Zofran Injection IVPUSH Q6H PRN NAUSEA Pantoprazole Sodium 20 mg 12/20/17 10:00 Protonix - PO DAILY [facility] Zolpidem Tartrate 5 mg 12/19/17 21:00 12/20/17 00:43 Ambien - PO 5 mg HS PRN Administration INSOMNIA ASSESSMENT/PLAN: Imaging: CT of abdomen and pelvis reviewed , 2.4 cm right ovarian cyst. transvaginal ultrasound: pending Patient is a 52 year old female with a significant past medical history of Lupus , hypertension. She presents to the ED with c/o of nausea, vomiting. A CT scan of abdomen and pelvis shows right ovarian cyst but no acute abdominal pathology. GI: Nausea/Vomiting/Possible gastroentritis: Nausea/vomiting resolved. Patient able to tolerate diet advancement without difficulty or n/v/d. Continue IV hydration. Pain managed with morphine. CT scan of abdomen/pelvis negative for acute process. 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 On Plaquenil BID. Card: Hypertension: Controlled, continue home meds. 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 transvaginal u/s ordered and pending. Follow up outpatient with treatment supervisor. fen regular diet in a.m. monitor electrolytes advance diet scds protonix full code Visit type - Emergency Visit Emergency Visit: Yes ED Registration Date: 12/19/17 Care time: The patient presented to the Emergency Department on the above date and was hospitalized for further evaluation of their emergent condition. - New Patient This patient is new to me today: Yes Date on this admission: 12/20/17 - Critical Care Critical Care patient: No - Discharge Referral Referred to [facility] Med [facility] No
[2017-12-20 08:49] LABS: MEAN CELL VOLUME 77.3 fl (80-96)
[2017-12-20 08:54] LABS: ANION GAP 8 (8-16); BLOOD UREA NITROGEN 10 mg/dl (7-18); CALCIUM 8.5 mg/dl (8.4-10.2); CHLORIDE 101 mmol/L (98-107); CO2 27 mmol/L (22-28); CREATININE 0.6 mg/dl (0.6-1.3); GLUCOSE,RANDOM 127 mg/dl (74-106); MAGNESIUM 1.7 mg/dL (1.8-2.4); SODIUM 136 mmol/L (136-145)
[2017-12-20 09:06] LABS: HEMATOCRIT 34.7 % (32.4-45.2); HEMOGLOBIN 10.8 GM/dl (10.7-15.3); LYMPH % 10.4 % (8-40); MCH 24.2 pg (25.7-33.7); MCHC 31.3 g/dl (32.0-36.0); MEAN PLT VOLUME 10.2 fl (7.5-11.1); MONO % 4.1 % (3.8-10.2); NEUT % 85.5 % (42.8-82.8); PLATELET COUNT 270 K/MM3 (134-434); RBC 4.48 M/mm3 (3.60-5.2); RDW 17.5 % (11.6-15.6); WHITE BLOOD COUNT 10.8 K/mm3 (4.0-10.8)
[2017-12-20] MEDS: HYDROCHLOROTHIAZIDE 25 MG TABLET (FP) PO SCH ×2 (09:11→15:24)
[2017-12-20] MEDS: HYDROXYCHLOROQUINE SO4 200 MG TABLET (FP) PO SCH ×2 (09:11→22:09)
[2017-12-20] MEDS: HEPARIN NA (PORCINE) 5,000 UNITS/ML 1ML VIAL SQ SCH ×2 (09:12→22:09)
[2017-12-20] MEDS ORDERED: PANTOPRAZOLE 20 MG TABLET (FP) PO SCH (10:00)
[2017-12-20] MEDS: morphine CARPU-JECT 2 MG/1 ML DISP.SYRIN IVPUSH PRN (14:00)
[2017-12-20] MEDS ORDERED: diphenhydrAMINE HCL 25 MG CAPSULE (FP) PO PRN (16:28)
[2017-12-20] MEDS ORDERED: HYDROCHLOROTHIAZIDE 25 MG TABLET (FP) PO ONE (21:23)
[2017-12-20] MEDS ORDERED: MAGNESIUM OXIDE 400 MG TABLET (FP) PO ONE (21:31)
[2017-12-20 22:45] VITALS: TEMP 98.6
[2017-12-21] MEDS: ZOLPIDEM TARTRATE 5 MG TABLET PO PRN (00:12)
[2017-12-21 06:48] VITALS: BP 115/71; PULSE 80
[2017-12-21 09:19] LABS: BASO % 0.5 % (0-2.0); EOS % 0.6 % (0-4.5); HEMATOCRIT 33.6 % (32.4-45.2); HEMOGLOBIN 10.4 GM/dl (10.7-15.3); MEAN CELL VOLUME 77.4 fl (80-96); MEAN PLT VOLUME 10.2 fl (7.5-11.1); MONO % 9.4 % (3.8-10.2); NEUT % 40.5 % (42.8-82.8); PLATELET COUNT 274 K/MM3 (134-434); RBC 4.34 M/mm3 (3.60-5.2); RDW 17.8 % (11.6-15.6); WHITE BLOOD COUNT 6.1 K/mm3 (4.0-10.8)
[2017-12-21 09:37] LABS: ALK PHOS 43 U/L (32-92); ANION GAP 6 (8-16); BILIRUBIN,TOTAL 0.3 mg/dl (0.2-1.0); BLOOD UREA NITROGEN 10 mg/dl (7-18); CALCIUM 8.5 mg/dl (8.4-10.2); CHLORIDE 102 mmol/L (98-107); CO2 29 mmol/L (22-28); CREATININE 0.7 mg/dl (0.6-1.3); GLUCOSE,RANDOM 91 mg/dl (74-106); POTASSIUM 3.5 mmol/L (3.5-5.1); SGOT/AST 18 U/L (10-42); SGPT/ALT 13 U/L (10-40); SODIUM 137 mmol/L (136-145); TOT PROT 5.5 g/dl (6.4-8.3)
--- NOTE | 2017-12-21 11:40 | DS ---
Physical Exam: SUBJECTIVE: Patient seen and examined at the bedside. OBJECTIVE: Vital Signs Period Temp Pulse Resp BP Sys/Khalil Pulse Ox Last 24 Hr 98.2 F-98.8 F 78-94 18-20 115-138/67-73 98-98 PHYSICAL EXAM GENERAL: The patient is awake, alert, and fully oriented, in no acute distress HEAD: Normal with no signs of trauma. EYES: PERRL, extraocular movements intact, sclera anicteric, conjunctiva clear. No ptosis. ENT: Ears normal, nares patent, oropharynx clear without exudates, moist mucous membranes. NECK: Trachea midline, full range of motion, supple. LUNGS: Breath sounds equal, clear to auscultation bilaterally -no evidence of congestion HEART: Regular rate and rhythm, ABDOMEN: Soft, nontender, nondistended, normoactive bowel sounds, no guarding, no rebound, no hepatosplenomegaly, no masses. EXTREMITIES: no edema. NEUROLOGICAL: Normal speech, gait not observed. PSYCH: Normal mood, normal affect. SKIN: Warm, dry, normal turgor, no rashes or lesions noted LABS Laboratory Results - last 24 hr 12/20/17 12/21/17 12/21/17 07:50 06:00 06:00 WBC 6.1 RBC 4.34 Hgb 10.4 L Hct 33.6 MCV 77.4 L MCH 24.0 L MCHC 31.0 L RDW 17.8 H Plt Count 274 MPV 10.2 Absolute Neuts (auto) 2.5 Neutrophils % 40.5 L Lymphocytes % 49.0 H Monocytes % 9.4 Eosinophils % 0.6 Basophils % 0.5 Sodium 137 Potassium 3.5 Chloride 102 Carbon Dioxide 29 H Anion Gap 6 L BUN 10 Creatinine 0.7 Creat Clearance w eGFR > 60 Random Glucose 91 D Calcium 8.5 Total Bilirubin 0.3 AST 18 ALT 13 Alkaline Phosphatase 43 C-Reactive Protein 0.3 Total Protein 5.5 L Albumin 3.0 L HOSPITAL COURSE: Date of Admission:12/19/17 Date of Discharge: 12/21/17 ASSESSMENT/PLAN: Imaging: CT of abdomen and pelvis reviewed , 2.4 cm right ovarian cyst. transvaginal ultrasound: fibroids, ovarian cysts Patient is a 52 year old female with a significant past medical history of Lupus and hypertension. She presents to the ED with c/o of nausea, vomiting. A CT scan of abdomen and pelvis shows right ovarian cyst but no acute abdominal pathology. GI: Nausea/Vomiting/Possible gastroentritis, resolved Nausea/vomiting resolved. Patient able to tolerate diet advancement without difficulty or n/v/d. No further abdominal pain. CT scan of abdomen/pelvis negative for acute process. Rheumatology: Patient follows outpatient conference interpreter. On Plaquenil BID. Card: Hypertension: Controlled, continue home meds. UTI: + urine culture with beta hemolytic strep b: 10k-20k colony count, asymptomatic. refusing antibiotics despite explaining to her that they are necessary as she is immunocompromised. Wants to see her own physician. 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 transvaginal u/s consistent with ovarian cysts. Follow up outpatient with help desk intern. Minutes to complete discharge: 45 Discharge Summary Reason For Visit: CYCLICAL VOMITING, INTRACTABLE,UNSPECIFIED ABDOMIN Current Active Problems Intractable vomiting (Acute) Condition: Stable - Instructions Referrals: Missy Dunbar MD [Primary Care Provider] - Disposition: HOME - Home Medications Comprehensive Discharge Medication List: Ambulatory Orders Hydroxychloroquine Sulfate [Plaquenil] 400 mg PO HS 11/19/16 Triamterene/Hydrochlorothiazid [Triamterene-Hctz 75-50 mg Tab] 1 each PO HS 03/28 This patient is new to me today: Yes Date on this admission: 12/21/17 Emergency Visit: Yes ED Registration Date: 12/19/17 Care time: The patient presented to the Emergency Department on the above date and was hospitalized for further evaluation of their emergent condition. Critical Care patient: No - Discharge Referral Referred to [facility] No
[2017-12-21 13:36] LABS: ADD RBC MORPHOLOGY YES
[2017-12-21 13:43] LABS: ANISOCYTOSIS 1+; MACROCYTOSIS 1+
[2017-12-21 13:44] LABS: ACANTHOCYTES 1+; PLATELET ESTIMATE ADEQUATE
== END 2017-12-21 11:45 | disposition home or self-care (01) ==
LOC: FER 14:20 → FM/S 18:26
PROVIDERS: ADMIT Internal Medicine; ATTEND Nurse Practitioner Family
PROC: 3E033GC Introduction of Other Therapeutic Substance into Peripheral Vein, Percutaneous Approach (ICD-10-PCS; principal; 2017-12-19)
PROC: 3E033NZ Introduction of Analgesics, Hypnotics, Sedatives into Peripheral Vein, Percutaneous Approach (ICD-10-PCS; 2017-12-19)
PROC: 3E0337Z Introduction of Electrolytic and Water Balance Substance into Peripheral Vein, Percutaneous Approach (ICD-10-PCS; 2017-12-19)
PROC: 3E013GC Introduction of Other Therapeutic Substance into Subcutaneous Tissue, Percutaneous Approach (ICD-10-PCS; 2017-12-19)
DX: G43.A1 Cyclical vomiting, in migraine, intractable (principal); M32.9 Systemic lupus erythematosus, unspecified; I10 Essential (primary) hypertension; N83.201 Unspecified ovarian cyst, right side
CPT/HCPCS: 36415; 74176-TC; 76830-TC; 76856-TC; 80048; 80053; 81003; 82150; 83605; 83690; 83735; 85025; 85651; 86140; 87086; 87186; 99283-25; G0378; J0131; J1644; J7030

== ENCOUNTER 2018-08-18 11:45 | Emergency (ER) | payer OTHER ==
[2018-08-18 12:05] VITALS: BP 128/85; PULSE 96; TEMP 97.8; BMI 27.4
[2018-08-18] MEDS ORDERED: DEXAMETHASONE SOD PHOSPHATE 10 MG/1 ML VIAL IM ONE (12:21)
--- NOTE | 2018-08-18 12:25 | PDOC ---
History of Present Illness - General Chief Complaint: Headache Stated Complaint: CHEST / FACIAL RASH Time Seen by Provider: 08/18/18 12:08 History Source: Patient Exam Limitations: Clinical Condition - History of Present Illness Initial Comments: 08/18/18 12:25 Patient with history of lupus present with complaint of diffuse body rash to face, chest, back and torso after starting Lamictal 10 days ago. Patient described rashes as red itchy rash. Denies shortness of breath, tongue swelling , lip swelling or choking sensation denies any other symptoms. Timing/Duration: 24 hours Past History - Past Medical History Allergies/Adverse Reactions: Allergies Allergy/AdvReac Type Severity Reaction Status Date / Time epinephrine Allergy Severe Difficulty Verified 08/18/18 11:55 Breathing Iodinated Contrast- Oral and Allergy Severe Difficulty Verified 08/18/18 11:55 IV Dye Breathing [Iodinated Contrast Media - Oral and] tramadol Allergy Severe Difficulty Verified 08/18/18 11:55 Breathing Home Medications: Ambulatory Orders Famotidine [Pepcid] 20 mg PO BID 4 Days #8 tablet 08/18/18 Hydrocortisone 2.5% Lotion [Hytone 2.5% Lotion -] 1 applic TP BID PRN #1 bottle 08/18/18 Prednisone [Deltasone] 20 mg PO BID 4 Days #8 tablet 08/18/18 COPD: No GI Disorders: Yes (GERD) HTN: Yes Psychiatric Problems: Yes (DEPRESSION) Other medical history: LUPOS;SLE - Surgical History Cholecystectomy: Yes - Suicide/Smoking/Psychosocial Hx Smoking History: Never smoked Have you smoked in the past 12 months: No Hx Alcohol Use: No Drug/Substance Use Hx: No Substance Use Type: None Hx Substance Use Treatment: No Review of Systems - Review of Systems Able to Perform ROS?: Yes Is the patient limited Haitian proficient: No Constitutional: No: Chills, Fever, Malaise HEENTM: No: Symptoms Reported, Difficulty Swallowing, Mouth Swelling Respiratory: No: Symptoms reported, Shortness of Breath, SOB with Exertion, Wheezing Cardiac (ROS): No: Symptoms Reported, Chest Pain ABD/GI: No: Nausea, Vomiting Integumentary: Yes: Symptoms Reported, See HPI, Pruritus (itchy over rash), Rash (diffused erythema rash) Neurological: No: Dizziness All Other Systems: Reviewed and Negative *Physical Exam - Vital Signs Last Vital Signs Temp Pulse Resp BP Pulse Ox 97.8 F 96 H 20 128/85 99 08/18/18 11:56 08/18/18 11:56 08/18/18 11:56 08/18/18 11:56 08/18/18 11:56 - Physical Exam Comments: 08/18/18 12:28 GENERAL: Well developed, well nourished. Awake and alert. No acute distress. HEENT: Normocephalic, atraumatic. PERRLA, EOMI. No conjunctival pallor. Sclera are non-icteric. Moist mucous membranes. Oropharynx is clear. NECK: Supple. Full ROM. CARDIOVASCULAR: Regular rate and rhythm. No murmurs, rubs, or gallops. Distal pulses are 2+ and symmetric. PULMONARY: No evidence of respiratory distress. ABDOMINAL: Soft. Non-tender. Non-distended. No rebound or guarding. No organomegaly. Normoactive bowel sounds. MUSCULOSKELETAL Normal range of motion at all joints. SKIN: Warm and dry. Normal capillary refill. Diffuse global urticarial maculopapular rash without discoloration to anterior chest, torso, upper back and bilateral cheek areas without excoriations. NEUROLOGICAL: Alert, awake, appropriate. Gait is normal without ataxia. PSYCHIATRIC: Cooperative. Good eye contact. Appropriate mood General Appearance: Yes: Nourished, Appropriately Dressed. No: Apparent Distress Medical Decision Making - Medical Decision Making 08/18/18 12:29 Patient with a lupus present with complaint of diffuse red rash and itching for 24 hours after starting Lamictal medication 10 days ago. Patient denies any choking sensation, tongue swelling or lip swelling. Patient report no other symptoms. Exam significant for Diffuse global urticarial maculopapular rash without discoloration to anterior chest, torso, upper back and bilateral cheek areas without excoriations. Decadron 10 mg IM given and Benadryl 25 mg IM given for ALLERGIC dermatitis. Patient is stable for outpatient management on 4 day course of prednisone and Pepcid with topical hydrocortisone for rash. Patient advised to stop Lamictal medication and follow-up with PCP immediately for change of medication. Patient is stable for discharge *DC/Admit/Observation/Transfer Diagnosis at time of Disposition: Urticaria due to drug allergy, Dermatitis - Discharge Dispostion Disposition: HOME Condition at time of disposition: Stable Decision to Admit order: No - Prescriptions Prescriptions: Famotidine [Pepcid] 20 mg PO BID 4 Days #8 tablet Hydrocortisone 2.5% Lotion [Hytone 2.5% Lotion -] 1 applic TP BID PRN #1 bottle PRN Reason: rash Prednisone [Deltasone] 20 mg PO BID 4 Days #8 tablet - Referrals Referrals: Missy Dunbar MD [Primary Care Provider] - - Patient Instructions Printed Discharge Instructions: Urticaria (Alternative Therapy), DI for Hives Additional Instructions: Take medications as prescribed. Stop Lamictal medication and follow-up with PCP as soon as possible in the next 3 days for change in medication - Post Discharge Activity
[2018-08-18] MEDS ORDERED: DEXAMETHASONE SOD PHOSPHATE 10 MG/1 ML VIAL ONE (12:29)
== END 2018-08-18 12:34 | disposition home or self-care (01) ==
LOC: JERFT 11:45
PROC: 3E0233Z Introduction of Anti-inflammatory into Muscle, Percutaneous Approach (ICD-10-PCS; principal; 2018-08-18)
PROC: 3E023GC Introduction of Other Therapeutic Substance into Muscle, Percutaneous Approach (ICD-10-PCS; 2018-08-18)
DX: L50.0 Allergic urticaria (principal); T42.6X5A Adverse effect of other antiepileptic and sedative-hypnotic drugs, initial encounter; Y92.018 Other place in single-family (private) house as the place of occurrence of the external cause
CPT/HCPCS: 96372; 99281-25; J1100

== ENCOUNTER 2018-08-20 18:06 | Emergency (ER) | payer OTHER ==
[2018-08-20 18:22] VITALS: BP 140/79; PULSE 94; TEMP 98.3; BMI 27.6
[2018-08-20] MEDS ORDERED: diphenhydrAMINE HCL 25 MG CAPSULE (FP) PO ONE ×2 (20:57)
--- NOTE | 2018-08-20 21:04 | PDOC ---
History of Present Illness - General Chief Complaint: Rash Stated Complaint: RASH Time Seen by Provider: 08/20/18 20:33 History Source: Patient Exam Limitations: No Limitations - History of Present Illness Initial Comments: 08/20/18 21:07 HISTORY OF PRESENT ILLNESS: This 53-year-old woman presents emergency department for reevaluation of rash she noted 2 days ago. Patient was seen in this emergency department and told she was having a reaction to the Lamictal which she had started approximately 10 days prior. Patient has been taken steroids daily with intermittent use of Pepcid and Benadryl. Patient has ceased her Lamictal has been in contact with her psychiatrist. Patient denies any shortness of breath, chest pain, throat itching or wheezing. No recent travel or sick contacts. PAST MEDICAL HISTORY: bipolar d/o, SLE SURGICAL HISTORY: Denies ALLERGIES: epi, IV contrast, tramadol, Lamictal REVIEW OF SYSTEMS General/Constitutional: Denies fever or chills. Denies weakness, weight change. HEENT: Denies change in vision. Denies ear pain or discharge. Denies sore throat. Cardiovascular: Denies chest pain or shortness of breath. Respiratory: Denies cough, wheezing, or hemoptysis. Gastrointestinal: Denies nausea, vomiting, diarrhea or constipation. Denies rectal bleeding. Genitourinary: Denies dysuria, frequency, or change in urination. Musculoskeletal: Denies joint or muscle swelling or pain. Denies neck or back pain. Skin and breasts: see HPI Neurologic: Denies headache, vertigo, loss of consciousness, or loss of sensation. Psychiatric: Denies depression or anxiety. Endocrine: Denies increased thirst. Denies abnormal weight change. Hematologic/Lymphatic: Denies anemia, easy bleeding, or history of blood clots. Allergic/Immunologic: Denies hives or skin allergy. Denies latex allergy. PHYSICAL EXAM General Appearance: Well-appearing, appropriately dressed. No apparent distress , no intoxication. Neck: Supple. Trachea midline. No tenderness, rigidity, carotid bruit, stridor , lymphadenopathy, or thyromegaly. Respiratory/Chest: Lungs CTAB. No shortness of breath, chest tenderness, respiratory distress, accessory muscle use. No crackles, rales, rhonchi, stridor , wheezing, dullness Cardiovascular: RRR. S1, S2. No JVD, murmur, bradycardia, tachycardia. Integumentary: Fine lacy pruritic rash present to bilateral upper extremities, chest, abdomen and back. 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 Fully oriented, alert. Appropriate mood/affect. Motor strength 5/5. No appreciable EOM palsy, facial droop or sensory deficit. Past History - Past Medical History Allergies/Adverse Reactions: Allergies Allergy/AdvReac Type Severity Reaction Status Date / Time epinephrine Allergy Severe Difficulty Verified 08/18/18 11:55 Breathing Iodinated Contrast- Oral and Allergy Severe Difficulty Verified 08/18/18 11:55 IV Dye Breathing [Iodinated Contrast Media - Oral and] tramadol Allergy Severe Difficulty Verified 08/18/18 11:55 Breathing Home Medications: Ambulatory Orders Famotidine [Pepcid] 20 mg PO BID 4 Days #8 tablet 08/18/18 Hydrocortisone 2.5% Lotion [Hytone 2.5% Lotion -] 1 applic TP BID PRN #1 bottle 08/18/18 Prednisone [Deltasone] 20 mg PO BID 4 Days #8 tablet 08/18/18 COPD: No GI Disorders: Yes (GERD) HTN: Yes Psychiatric Problems: Yes (DEPRESSION) - Surgical History Cholecystectomy: Yes - Immunization History Immunization Up to Date: No - Suicide/Smoking/Psychosocial Hx Smoking History: Never smoked Have you smoked in the past 12 months: No Information on smoking cessation initiated: No Hx Alcohol Use: No Drug/Substance Use Hx: No Substance Use Type: None Hx Substance Use Treatment: No *Physical Exam - Vital Signs Last Vital Signs Temp Pulse Resp BP Pulse Ox 98.3 F 94 H 18 140/79 98 08/20/18 18:17 08/20/18 18:17 08/20/18 18:17 08/20/18 18:17 08/20/18 18:17 Medical Decision Making - Medical Decision Making 08/20/18 21:00 A/P: 53-year-old woman with lacy rash present to upper extremities and trunk Patient seen and evaluated determined to have reaction to Lamictal. Patient's last dose of normal Lamictal was approximately 48 hours ago. Was explained to the patient Lamictal is a half-life of 33 hours her body still process in the Lamictal at this time. His continue taking steroids and Benadryl as previously recommended to follow-up with her primary doctor for continued evaluation and treated adjust her medications for mood stabilization. Benadryl 50 mg orally now Discharge home *DC/Admit/Observation/Transfer Diagnosis at time of Disposition: Urticaria due to drug allergy - Discharge Dispostion Disposition: HOME Condition at time of disposition: Stable Decision to Admit order: No - Referrals Referrals: Missy Dunbar MD [Primary Care Provider] - - Patient Instructions Additional Instructions: Continue prednisone as previously prescribed. Take antihistamines like Melida, Zyrtec or Claritin during the day itching and rash relief. At night take Benadryl to help control the rash. You must take these medicines throughout the day to help control the rash in addition to the steroids. Continue to take Pepcid twice a day. Make an appointment to primary doctor or ENT correspondence specialist for evaluation and verified Lamictal was the cause of the rash. Return to the emergency department for any worsening rash, difficulty breathing , throat swelling or for any other concerns. Thank you very much for choosing us to provide emergent health care needs. - Post Discharge Activity
== END 2018-08-20 21:12 | disposition home or self-care (01) ==
LOC: JERFT 18:06
DX: L50.0 Allergic urticaria (principal); T42.6X5A Adverse effect of other antiepileptic and sedative-hypnotic drugs, initial encounter; Y92.018 Other place in single-family (private) house as the place of occurrence of the external cause; I10 Essential (primary) hypertension; K21.9 Gastro-esophageal reflux disease without esophagitis; F32.9 Major depressive disorder, single episode, unspecified
CPT/HCPCS: 99281-25

== ENCOUNTER 2020-08-16 13:18 | Emergency (ER) | payer OTHER ==
[2020-08-16 13:35] VITALS: BMI 28.5
[2020-08-16 15:25] LABS: BASO % 0.7 % (0-2.0); EOS % 0.8 % (0-4.5); HEMATOCRIT 39.4 % (32.4-45.2); HEMOGLOBIN 12.6 GM/dL (10.7-15.3); LYMPH % 27.9 % (8-40); MCH 25.2 pg (25.7-33.7); MEAN CELL VOLUME 78.7 fl (80-96); MEAN PLT VOLUME 9.6 fl (7.5-11.1); MONO % 10.6 % (3.8-10.2); PLATELET COUNT 319 K/MM3 (134-434); RBC 5.01 M/mm3 (3.60-5.2); RDW 15.5 % (11.6-15.6); URINE APPEARANCE CLEAR; URINE BILIRUBIN NEGATIVE (NEGATIVE); URINE COLOR YELLOW; URINE GLUCOSE (UA) NEGATIVE (NEGATIVE); URINE KETONE TRACE (NEGATIVE); URINE LEUK ESTERASE NEGATIVE (NEGATIVE); URINE NITRITE NEGATIVE (NEGATIVE); URINE PROTEIN NEGATIVE (NEGATIVE); WHITE BLOOD COUNT 5.8 K/mm3 (4.0-10.0)
[2020-08-16 15:42] LABS: CALCIUM 8.8 mg/dL (8.5-10.1)
[2020-08-16 15:43] LABS: ALBUMIN 3.8 g/dl (3.4-5.0); BLOOD UREA NITROGEN 15.9 mg/dL (7-18)
[2020-08-16] MEDS ORDERED: POTASSIUM CHLORIDE TABS 20 MEQ TABLET.ER (FP) PO ONE ×2 (15:43→15:49)
[2020-08-16 15:46] LABS: CREATININE 0.8 mg/dL (0.55-1.3)
[2020-08-16 15:47] LABS: BILIRUBIN,TOTAL 0.4 mg/dL (0.2-1); TOT PROT 7.3 g/dl (6.4-8.2)
[2020-08-16 16:14] VITALS: BP 150/89; PULSE 75; TEMP 98
== END 2020-08-16 16:15 | disposition home or self-care (01) ==
LOC: JER 13:18
DX: G25.0 Essential tremor (principal)
CPT/HCPCS: 36415; 70450-TC; 80053; 81003; 85025; 99284-25

== ENCOUNTER 2020-09-22 04:58 | Day surgery (SDC) | payer OTHER ==
[2020-09-19 14:56] VITALS: BMI 32.6
[2020-09-22] MEDS ORDERED: IOHEXOL 180 MG/1 ML ML IJ ONE ×2 (16:45→16:47)
[2020-09-22] MEDS ORDERED: LIDOCAINE HCL 1% PRESERVATIVE FREE - 30ML VIAL IJ ONE ×2 (16:45→16:47)
[2020-09-22] MEDS ORDERED: BUPIVACAINE HCL/PF 0.75% 10 ML VIAL NR ONE ×2 (16:46→16:47)
[2020-09-22 18:07] VITALS: TEMP 97.8
[2020-09-22 18:12] VITALS: BP 130/80; PULSE 84
== END 2020-09-22 18:00 | disposition home or self-care (01) ==
LOC: JASU-SURG 04:58
PROVIDERS: ATTEND Pain Medicine Pain Medicine
PROC: BR16YZZ Fluoroscopy of Lumbar Facet Joint(s) using Other Contrast (ICD-10-PCS; 2020-09-22)
PROC: 3E0T3BZ Introduction of Anesthetic Agent into Peripheral Nerves and Plexi, Percutaneous Approach (ICD-10-PCS; principal; 2020-09-22 16:00)
DX: M47.816 Spondylosis without myelopathy or radiculopathy, lumbar region (principal)
CPT/HCPCS: 76000-TC-FY

== ENCOUNTER 2021-04-27 04:56 | Day surgery (SDC) | payer OTHER ==
[2021-04-26 11:20] VITALS: BMI 28.3
[~2021-04-27 04:56] MED LIST: BUPIVACAINE HCL/PF 0.75% 10 ML VIAL NR ONE; IOHEXOL 180 MG/1 ML ML IJ ONE; LIDOCAINE HCL 1% PRESERVATIVE FREE - 30ML VIAL IJ ONE
[2021-04-27] MEDS ORDERED: LIDOCAINE HCL 1% PRESERVATIVE FREE - 30ML VIAL IJ ONE ×2 (12:42)
[2021-04-27] MEDS ORDERED: IOHEXOL 180 MG/1 ML ML IJ ONE ×2 (12:48)
[2021-04-27] MEDS ORDERED: BUPIVACAINE HCL/PF 0.75% 10 ML VIAL NR ONE (12:49)
[2021-04-27 13:25] VITALS: TEMP 97.5
[2021-04-27 13:55] VITALS: BP 130/80; PULSE 74
== END 2021-04-27 13:50 | disposition home or self-care (01) ==
LOC: JASU-SURG 04:56
PROVIDERS: ATTEND Pain Medicine Pain Medicine
PROC: 3E0T33Z Introduction of Anti-inflammatory into Peripheral Nerves and Plexi, Percutaneous Approach (ICD-10-PCS; 2021-04-27)
PROC: 3E0T3BZ Introduction of Anesthetic Agent into Peripheral Nerves and Plexi, Percutaneous Approach (ICD-10-PCS; principal; 2021-04-27 12:30)
DX: M47.816 Spondylosis without myelopathy or radiculopathy, lumbar region (principal)
CPT/HCPCS: 76000-TC-FY

== ENCOUNTER 2021-05-25 04:19 | Day surgery (SDC) | payer OTHER ==
[2021-05-23 12:24] VITALS: BMI 27.6
[2021-05-25] MEDS ORDERED: DEXAMETHASONE SOD PHOSPHATE 10 MG/1 ML VIAL ONE (07:34)
[2021-05-25] MEDS ORDERED: LIDOCAINE HCL/PF 1% SDV 5ML VIAL ONE (07:35)
[2021-05-25] MEDS ORDERED: BUPIVACAINE HCL/PF 0.75% 10 ML VIAL ONE (07:35)
[2021-05-25] MEDS ORDERED: LIDOCAINE HCL/PF 2% SDV 5ML VIAL ONE ×2 (07:37→13:54)
[2021-05-25] MEDS ORDERED: GLYCOPYRROLATE 0.2 MG/1 ML VIAL ONE (13:54)
[2021-05-25] MEDS ORDERED: MIDAZOLAM HCL 2 MG/2 ML SINGLE DOSE VIAL ONE ×2 (13:54)
[2021-05-25] MEDS ORDERED: ONDANSETRON 4 MG/2 ML VIAL ONE (13:54)
[2021-05-25] MEDS ORDERED: PROPOFOL 20 ML ONE ×2 (13:54)
[2021-05-25] MEDS ORDERED: BUPIVACAINE HCL/PF 0.75% 10 ML VIAL PNB ONE (14:24)
[2021-05-25] MEDS ORDERED: IOHEXOL 180 MG/1 ML ML IJ ONE (14:24)
[2021-05-25] MEDS ORDERED: LIDOCAINE HCL/PF 2% SDV 5ML VIAL INF ONE (14:24)
[2021-05-25] MEDS ORDERED: LIDOCAINE HCL 1% PRESERVATIVE FREE - 30ML VIAL IJ ONE (14:24)
[2021-05-25 15:03] VITALS: TEMP 97.1
[2021-05-25 17:30] VITALS: BP 130/80; PULSE 86
== END 2021-05-25 16:55 | disposition home or self-care (01) ==
LOC: JASU-SURG 04:19
PROVIDERS: ATTEND Pain Medicine Pain Medicine
PROC: 3E0T3TZ Introduction of Destructive Agent into Peripheral Nerves and Plexi, Percutaneous Approach (ICD-10-PCS; principal; 2021-05-25 16:30)
PROC: BR16YZZ Fluoroscopy of Lumbar Facet Joint(s) using Other Contrast (ICD-10-PCS; 2021-05-25 16:30)
DX: M47.816 Spondylosis without myelopathy or radiculopathy, lumbar region (principal); I10 Essential (primary) hypertension
CPT/HCPCS: 76000-TC-FY; 81025; J1100

== ENCOUNTER 2021-07-17 04:29 | Day surgery (SDC) | payer OTHER ==
[2021-07-16 15:47] VITALS: BMI 27.1
[~2021-07-17 04:29] MED LIST changes: +BUPIVACAINE HCL/PF 0.5% (5MG/ML) 10 ML VIAL IJ ONE; -BUPIVACAINE HCL/PF 0.75% 10 ML VIAL NR ONE; +TRIAMCINOLONE ACETONIDE 40 MG/ML 10 ML VIAL IJ ONE
[2021-07-17] MEDS ORDERED: LIDOCAINE HCL/PF 1% SDV 5ML VIAL ONE (07:28)
[2021-07-17] MEDS ORDERED: BUPIVACAINE HCL/PF 0.5% (5MG/ML) 10 ML VIAL ONE (07:28)
[2021-07-17] MEDS ORDERED: TRIAMCINOLONE ACET 40MG/1ML VIAL ONE (07:36)
[2021-07-17 08:23] VITALS: TEMP 98.8
[2021-07-17] MEDS ORDERED: MIDAZOLAM HCL 2 MG/2 ML SINGLE DOSE VIAL ONE (10:17)
[2021-07-17] MEDS ORDERED: LIDOCAINE HCL 1% PRESERVATIVE FREE - 30ML VIAL IJ ONE (10:23)
[2021-07-17] MEDS ORDERED: IOHEXOL 180 MG/1 ML ML IJ ONE (10:23)
[2021-07-17] MEDS ORDERED: TRIAMCINOLONE ACETONIDE 40 MG/ML 10 ML VIAL IJ ONE (10:24)
[2021-07-17] MEDS ORDERED: BUPIVACAINE HCL/PF 0.5% (5MG/ML) 10 ML VIAL IJ ONE (10:24)
[2021-07-17] MEDS ORDERED: PROPOFOL 20 ML ONE (10:24)
[2021-07-17 13:19] VITALS: BP 125/75; PULSE 70
== END 2021-07-17 12:08 | disposition home or self-care (01) ==
LOC: JASU-SURG 04:29
PROVIDERS: ATTEND Pain Medicine Pain Medicine
PROC: 3E0U3BZ Introduction of Anesthetic Agent into Joints, Percutaneous Approach (ICD-10-PCS; 2021-07-17)
PROC: 3E0U33Z Introduction of Anti-inflammatory into Joints, Percutaneous Approach (ICD-10-PCS; principal; 2021-07-17 09:00)
DX: M53.3 Sacrococcygeal disorders, not elsewhere classified (principal); I10 Essential (primary) hypertension
CPT/HCPCS: 76000-TC-FY; 81025

== ENCOUNTER 2023-06-06 08:34 | Day surgery (SDC) | payer OTHER ==
[2023-06-03 14:42] VITALS: BMI 30.2
[~2023-06-06 08:34] MED LIST changes: +ACETAMINOPHEN 325 MG TABLET (FP) PO PRN; -BUPIVACAINE HCL/PF 0.5% (5MG/ML) 10 ML VIAL IJ ONE; -IOHEXOL 180 MG/1 ML ML IJ ONE; -LIDOCAINE HCL 1% PRESERVATIVE FREE - 30ML VIAL IJ ONE; +ONDANSETRON 4 MG/2 ML VIAL IVPUSH PRN; -TRIAMCINOLONE ACETONIDE 40 MG/ML 10 ML VIAL IJ ONE; +oxyCODONE HCL 5 MG TABLET PO PRN
[2023-06-06] MEDS ORDERED: DEXAMETHASONE SOD PHOSPHATE/PF 10 MG/ML SDV ONE (08:46)
[2023-06-06] MEDS ORDERED: BUPIVACAINE HCL/PF 0.5% (5 MG/ML) 30 ML VIAL IJ ONE (08:46)
[2023-06-06] MEDS ORDERED: ACETAMINOPHEN INJECTION 100 ML IVPB ONE (08:46)
[2023-06-06] MEDS ORDERED: PROPOFOL 20 ML ONE ×3 (08:48→12:30)
[2023-06-06] MEDS ORDERED: MIDAZOLAM HCL 2 MG/2 ML SINGLE DOSE VIAL ONE ×2 (08:48→10:15)
[2023-06-06] MEDS ORDERED: CYCLOBENZAPRINE HCL 10 MG TABLET (FP) PO PRN (09:58)
[2023-06-06] MEDS ORDERED: PATIENT'S OWN MEDICATION (NON-FORMULARY) (Semaglutide [Ozempic] 2 MG/0.75 ML Pen.Injctr) SQ SCH (10:00)
[2023-06-06] MEDS ORDERED: PROPOFOL 40 ML ONE (10:14)
[2023-06-06] MEDS ORDERED: VANCOMYCIN 1,000 MG VIAL (RESTRICTED TO ID ONLY) ONE ×2 (10:18→11:18)
[2023-06-06] MEDS ORDERED: TRANEXAMIC ACID 1000 MG/10 ML VIAL ONE ×2 (10:18→11:18)
[2023-06-06] MEDS ORDERED: KETOROLAC TROMETHAMINE 30 MG/1 ML VIAL ONE (11:18)
[2023-06-06] MEDS ORDERED: ceFAZolin SODIUM 1 GM VIAL ONE (11:18)
[2023-06-06] MEDS ORDERED: LABETALOL HCL 5 MG/1 ML (100MG/20 ML VIAL) ONE (11:18)
[2023-06-06] MEDS ORDERED: PHENYLEPHRINE HCL 10 MG/1 ML SINGLE DOSE VIAL ONE (11:42)
[2023-06-06] MEDS ORDERED: ACETAMINOPHEN 1000 MG/100 ML BAG IVPB PRN (13:33)
[2023-06-06] MEDS ORDERED: ONDANSETRON 4 MG/2 ML VIAL IVPUSH PRN (13:33)
[2023-06-06] MEDS ORDERED: oxyCODONE HCL 5 MG TABLET PO PRN (13:33)
[2023-06-06] MEDS ORDERED: LACTATED RINGERS SOLUTION 1,000 ML IV SCH (13:45)
[2023-06-06] MEDS: LACTATED RINGERS SOLUTION 1,000 ML IV SCH ×2 (14:15→16:13)
[2023-06-06] MEDS: BENZTROPINE MESYLATE 0.5 MG TABLET (FP) PO SCH ×2 (16:13→22:35)
[2023-06-06] MEDS: clonazePAM 0.5 MG TABLET PO SCH ×2 (16:13→21:18)
[2023-06-06] MEDS: SPIRONOLACTONE 25 MG TABLET PO SCH (16:13)
[2023-06-06] MEDS: CEFAZOLIN 1 GM in DEXTROSE 5%-WATER - 50 ML IVPB SCH ×2 (16:27→21:15)
[2023-06-06] MEDS: KETOROLAC TROMETHAMINE 30 MG/1 ML VIAL IVPUSH SCH (21:17)
[2023-06-06] MEDS: ACETAMINOPHEN 500 MG TABLET (FP) PO SCH (21:18)
[2023-06-06] MEDS: oxyCODONE HCL 10 MG SUSTAINED ACTING TABLET PO SCH (21:19)
[2023-06-06] MEDS ORDERED: LURASIDONE HCL 20 MG TABLET PO SCH (22:00)
[2023-06-06] MEDS ORDERED: VILAZODONE HYDROCHLORIDE 10 MG TABLET PO SCH (22:00)
[2023-06-06] MEDS ORDERED: LURASIDONE HCL PO SCH (22:00)
[2023-06-06] MEDS ORDERED: ZOLPIDEM TARTRATE 5 MG TABLET PO ONE (23:30)
[2023-06-07] MEDS: KETOROLAC TROMETHAMINE 30 MG/1 ML VIAL IVPUSH SCH (03:37)
[2023-06-07] MEDS: ACETAMINOPHEN 500 MG TABLET (FP) PO SCH ×2 (03:38→09:54)
[2023-06-07] MEDS: LACTATED RINGERS SOLUTION 1,000 ML IV SCH (08:34)
[2023-06-07] MEDS: SPIRONOLACTONE 25 MG TABLET PO SCH (09:54)
[2023-06-07] MEDS: BENZTROPINE MESYLATE 0.5 MG TABLET (FP) PO SCH (09:55)
[2023-06-07] MEDS: oxyCODONE HCL 10 MG SUSTAINED ACTING TABLET PO SCH (09:56)
[2023-06-07 10:01] VITALS: BP 143/73; PULSE 112; RESP 18; TEMP 97.9
[2023-06-07] MEDS: oxyCODONE HCL 5 MG TABLET PO PRN ×2 (10:06→13:09)
== END 2023-06-07 13:54 | disposition home or self-care (01) ==
LOC: FASU 08:34 → FASUSAT 08:34 → FM/S 14:53 → FASUSAT 06-07 13:54
PROVIDERS: ATTEND Orthopaedic Surgery
PROC: 0LS40ZZ Reposition Left Upper Arm Tendon, Open Approach (ICD-10-PCS; 2023-06-06)
PROC: 0PSD04Z Reposition Left Humeral Head with Internal Fixation Device, Open Approach (ICD-10-PCS; principal; 2023-06-06 10:50)
DX: S42.295A Other nondisplaced fracture of upper end of left humerus, initial encounter for closed fracture (principal); M75.22 Bicipital tendinitis, left shoulder; X58.XXXA Exposure to other specified factors, initial encounter; Y93.9 Activity, unspecified; Y92.9 Unspecified place or not applicable
CPT/HCPCS: 23430; 23615; C1713; 73030-TC-LT-FY; 94760

== ENCOUNTER 2024-03-22 08:17 | Day surgery (SDC) | payer OTHER ==
[2024-03-22 08:56] VITALS: BMI 32.3
[2024-03-22] MEDS ORDERED: PROPOFOL 40 ML ONE (09:22)
[2024-03-22] MEDS ORDERED: MIDAZOLAM HCL 2 MG/2 ML SINGLE DOSE VIAL ONE (09:28)
[2024-03-22] MEDS ORDERED: SUCCINYLCHOLINE CHLORIDE 200 MG/10 ML SYRINGE ONE (09:29)
[2024-03-22] MEDS ORDERED: ROPIVACAINE HCL/PF 100 MG/20 ML VIAL ONE (09:42)
[2024-03-22] MEDS ORDERED: ALBUTEROL SO4 HFA INHALER IH ONE (09:51)
[2024-03-22] MEDS ORDERED: PHENYLEPHRINE HCL 10 MG/1 ML SINGLE DOSE VIAL ONE (10:36)
[2024-03-22] MEDS ORDERED: TRANEXAMIC ACID 1000 MG/10 ML VIAL ONE ×2 (10:57→11:02)
[2024-03-22] MEDS ORDERED: ONDANSETRON 4 MG/2 ML VIAL ONE (11:02)
[2024-03-22] MEDS ORDERED: ceFAZolin SODIUM 1 GM VIAL ONE (11:02)
[2024-03-22] MEDS ORDERED: DEXAMETHASONE SOD PHOSPHATE 4 MG/1 ML VIAL ONE (11:02)
[2024-03-22] MEDS ORDERED: ONDANSETRON 4 MG/2 ML VIAL IVPUSH PRN ×2 (12:00→12:08)
[2024-03-22] MEDS ORDERED: MAG HYDROX/AL HYDROX/SIMETH 30 ML UNIT-DOSE CUP PO PRN ×2 (12:00→12:52)
[2024-03-22] MEDS ORDERED: oxyCODONE HCL 5 MG TABLET PO PRN (12:07)
[2024-03-22] MEDS: ACETAMINOPHEN 1000 MG/100 ML BAG IVPB ONE (12:13)
[2024-03-22] MEDS ORDERED: LACTATED RINGERS SOLUTION 1,000 ML IV SCH (12:15)
[2024-03-22] MEDS: LACTATED RINGERS SOLUTION 1,000 ML IV SCH (14:05)
[2024-03-22] MEDS: CEFAZOLIN SODIUM 2 GM in DEXTROSE 5%-WATER 100 ML IVPB SCH (19:01)
[2024-03-22] MEDS: ACETAMINOPHEN 325 MG TABLET (FP) PO PRN (19:29)
[2024-03-22] MEDS: oxyCODONE HCL 5 MG TABLET PO PRN (19:30)
[2024-03-22 20:21] VITALS: RESP 18
[2024-03-22] MEDS: CARVEDILOL 3.125 MG TABLET (FP) PO SCH (21:49)
[2024-03-22] MEDS: SENNOSIDES/DOCUSATE COMBO (SENNA PLUS) TABLET (UD) PO SCH (21:49)
[2024-03-22] MEDS: GABAPENTIN 300 MG CAPSULE PO SCH (21:49)
[2024-03-22] MEDS: ZOLPIDEM TARTRATE 5 MG TABLET PO PRN (21:50)
[2024-03-23] MEDS: clonazePAM 0.5 MG TABLET PO ONE (02:15)
[2024-03-23] MEDS: PANTOPRAZOLE 40 MG TABLET PO SCH (09:35)
[2024-03-23] MEDS: ASPIRIN COATED 81 MG TABLET.EC PO SCH (09:35)
[2024-03-23] MEDS: MULTIVITAMINS (DAILY MVI) TABLET (FP) PO SCH (09:35)
[2024-03-23 09:59] LABS: HEMATOCRIT 36.1 % (32.4-45.2); HEMOGLOBIN 11.4 GM/dL (10.7-15.3); MCH 27.4 pg (25.7-33.7); MCHC 31.5 g/dl (32.0-36.0); MEAN CELL VOLUME 86.8 fl (80-96); MEAN PLT VOLUME 8.9 fl (7.5-11.1); PLATELET COUNT 300 10^3/uL (134-434); RBC 4.16 M/mm3 (3.60-5.2); RDW 15.7 % (11.6-15.6); WHITE BLOOD COUNT 13.9 K/mm3 (4.0-10.0)
[2024-03-23 10:05] LABS: BLOOD UREA NITROGEN 13.8 mg/dL (7-18); CALCIUM 8.9 mg/dL (8.5-10.1)
[2024-03-23 10:09] LABS: CREATININE 1.1 mg/dL (0.55-1.3)
[2024-03-23 10:12] VITALS: PULSE 100
[2024-03-23 14:33] VITALS: BP 128/71; TEMP 98
== END 2024-03-23 15:50 | disposition home or self-care (01) ==
LOC: FASUSAT 08:17 → FASU 08:17 → SUATTDRO 08:17 → FM/S 12:46 → FASUSAT 03-23 15:50
PROVIDERS: ATTEND Internal Medicine
PROC: 0LS40ZZ Reposition Left Upper Arm Tendon, Open Approach (ICD-10-PCS; 2024-03-22)
PROC: 0HBCXZZ Excision of Left Upper Arm Skin, External Approach (ICD-10-PCS; 2024-03-22)
PROC: 0QP104Z Removal of Internal Fixation Device from Sacrum, Open Approach (ICD-10-PCS; principal; 2024-03-22 10:38)
DX: T84.098A Other mechanical complication of other internal joint prosthesis, initial encounter (principal); Y79.2 Prosthetic and other implants, materials and accessory orthopedic devices associated with adverse incidents; Y92.9 Unspecified place or not applicable; Z47.2 Encounter for removal of internal fixation device; L90.5 Scar conditions and fibrosis of skin; M75.02 Adhesive capsulitis of left shoulder
CPT/HCPCS: 36415; 73030-TC-LT-FY; 80048; 85027; 88300-TC; 94760; 97116-GP; 97162-GP; J0131